=== PATIENT | female | born 1965 | race Caucasian/White ===

== ENCOUNTER 2020-10-17 16:28 | Emergency (ER) | payer BC ==
--- NOTE | 2020-10-17 17:36 | EDM.PDOC ---
ED HPI GENERAL MEDICAL PROBLEM - General Chief Complaint: Respiratory Problem Stated Complaint: COVID +/CHEST PAIN Time Seen by Provider: 10/17/20 17:25 Source of Information: Reports: Patient History Limitations: Reports: No Limitations - History of Present Illness INITIAL COMMENTS - FREE TEXT/NARRATIVE: 55-year-old female presents to the ED with diffuse central chest discomfort that she has had for the last 2 days. Patient started to feel unwell last week Friday, September the . She had a COVID-19 screen on the which proved to be negative. 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 Over the weekend she developed a severe headache of sinus congestion generalized myalgia with fever and chills. Subsequently she has developed a mild nonproductive cough. She still has a bit of appetite and retention of her smell and taste. She has not developed any diarrhea. Generalized weakness and significant fatigue. She found out she was Covid positive today. She presents to the ED primarily due to the central chest discomfort to make sure there is no heart attack or PE. Onset: Gradual Onset Date: 10/13/20 Duration: Day(s):, Getting Worse Location: Reports: Chest, Generalized (Paroxysmal minimally productive cough generalized myalgia), Other ( with headache fever chills decreased appetite) Quality: Reports: Ache Severity: Moderate (Neurolyse myalgia 6 out of 10.) Improves with: Reports: Medication (Headache improves with Tylenol.) Worsens with: Reports: Other (Symptoms are worse with) Context: Reports: Sick Contact. Denies: Activity, Exercise ( movement and walking.), Lifting, Trauma, Other Associated Symptoms: Reports: Chest Pain (Has central chest discomfort), Cough, Diaphoresis ( with radiation across both upper anterior sides of her chest but not into her back.), Fever/Chills, Headaches, Loss of Appetite, Malaise, Nausea/Vomiting, Shortness of Breath, Weakness (Mild nausea no vomiting), Other. 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: Reports: Acetaminophen ( no diarrhea primarily for headache and body ache.) Middle Chest Pain Score (Numeric/FACES): 4 - Related Data Allergies Allergy/AdvReac Type Severity Reaction Status Date / Time hydrocodone Allergy Itching Verified 12/22/20 17:15 Home Meds: Home Meds Cyclobenzaprine HCl 10 mg PO BEDTIME 03/18/16 [History] LORazepam 1 mg PO DAILY PRN 03/18/16 [History] Spironolactone [Aldactone] 100 mg PO DAILY 03/18/16 [History] Albuterol Sulfate [Albuterol Sulfate Hfa] 8.5 gm IH Q3H PRN #1 hfa.aer.ad 10/17/20 [Rx] Famotidine 40 mg PO DAILY 10/17/20 [History] Metoprolol Succinate 25 mg PO DAILY 10/17/20 [History] Pravastatin [Pravachol] 40 mg PO DAILY 10/17/20 [History] buPROPion HCL [Wellbutrin Xl] 300 mg PO DAILY 10/17/20 [History] dexAMETHasone [Dexamethasone] 4 mg PO ASDIRECTED #15 tablet 10/17/20 [Rx] Past Medical History Gastrointestinal History: Reports: GERD - Past Surgical History Musculoskeletal Surgical History: Reports: Shoulder Surgery Social & Family History - Living Situation & Occupation Living situation: Reports: 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 Denies: Wheezing, Pleuritic Chest Pain Cardiovascular: Reports: Chest Pain, Dyspnea on Exertion, Lightheadedness. Denies: Blood Pressure Problem, Claudication (Chest discomfort which she describes as a pressure.), Edema, Orthopnea, Palpitations Endocrine: Reports: Fatigue GI/Abdominal: Reports: Decreased Appetite, Nausea, Other (History of severe GERD. No worse recently). Denies: Diarrhea, Vomiting (Mild nausea) : Reports: No Symptoms Musculoskeletal: Reports: Muscle Pain (Generalized myalgia particularly large muscles a neck) Skin: Reports: No Symptoms ( low back and thighs.) Neurological: Reports: Dizziness, Weakness. Denies: Trouble Speaking, Difficulty Walking Psychiatric: Reports: Depression Hematologic/Lymphatic: Reports: No Symptoms Immunologic: Reports: No Symptoms ED EXAM, GENERAL - Physical Exam Exam: See Below Exam Limited By: No Limitations General Appearance: Alert, WD/WN, No Apparent Distress, Other (Does feel mildly warm to palpation. Temperature is registered at 36.9. Heart rate is 110 at the bedside. Sinus on the monitor. Respiratory is 22 to 24/min with O2 sats of 96 to 97% room air BP is 149/93.) Eye Exam: Bilateral Eye: Normal Inspection, PERRL (No scleral icterus or blepharal pallor.) Ears: Normal TMs Throat/Mouth: Other Head: Atraumatic, Normocephalic (Tongue is mildly dry and coated. Oropharynx is otherwise normal) Neck: Normal Inspection, Supple, Non-Tender, Full Range of Motion. No: Lymphadenopathy (L), Lymphadenopathy (R) Respiratory/Chest: Respiratory Distress (Mild tachypnea.), Rales, Rhonchi (Scattered rales scattered rhonchi through both posterior lower lung omer). No: Lungs Clear, Normal Breath Sounds, Decreased Breath Sounds Cardiovascular: Normal Peripheral Pulses, Regular Rate, Rhythm, No Edema, No Gallop, No Murmur, No Rub, Tachycardia Peripheral Pulses: 3+: Carotid (L), Carotid (R), Posterior Tibial (L), Posterior Tibial (R), Dorsalis Pedis (L), Dorsalis Pedis (R) GI/Abdominal: Normal Bowel Sounds, Soft, Non-Tender, No Organomegaly, No Mass, Pelvis Stable, Other (Scars from laparoscopic cholecystectomy and laparoscopic assisted vaginal hysterectomy) Back Exam: Normal Inspection, Full Range of Motion. No: CVA Tenderness (L), CVA Tenderness (R) Extremities: Normal Inspection, Normal Range of Motion, Non-Tender, No Pedal Edema Neurological: Alert, Oriented, CN II-XII Intact, Normal Cognition Psychiatric: Anxious Skin Exam: Warm, Dry, Intact, Normal Color, No Rash #1 Interpretation EKG Date: 10/17/20 Time: 18:17 Rhythm: Other Rate (Beats/Min): 122 [place]: LAD-Left [place] Deviation (Left axis deviation of -41 degrees) P-Wave: Enlarged (Syndrome mild left atrial hypertrophy) QRS: Other (RSR prime wave V1 and V2 consider normal variant. Poor R wave progression with delayed transition. Decreased voltage throughout the precordial leads.) ST-T: Normal EKG Interpretation Comments: Abnormal ECG Course - Vital Signs Last Recorded V/S: Last Vital Signs Temp 36.9 C 10/17/20 17:17 Pulse 110 H 10/17/20 17:17 Resp 20 10/17/20 17:17 BP 149/93 H 10/17/20 17:17 Pulse Ox 97 10/17/20 17:17 - Orders/Labs/Meds Orders: Active Orders 24 hr Category Date Time Status EKG Documentation Completion [RC] STAT Care 10/17/20 17:44 Active Vital Signs [RC] Q15M Care 10/17/20 18:49 Active Vital Signs [RC] Q15M Care 10/17/20 19:16 Active Chest 1V Frontal [CR] Stat Exams 10/17/20 17:44 Taken URINALYSIS W/MICROSCOPIC [UA W/MICROSCOPIC] [URIN] Stat Lab 10/17/20 17:44 Ordered Acetaminophen [TylenoL] Med 10/17/20 17:41 Active 650 mg PO Q4H PRN Dextrose 5%-0.9% NaCl [Dextrose 5%-Normal Saline] 1,000 Med 10/17/20 17:45 Active ml IV ASDIRECTED EPINEPHrine [EPINEPHrine 1:10,000] Med 10/17/20 18:48 Active 0.3 mg IM ONETIME PRN EPINEPHrine [EPINEPHrine 1:10,000] Med 10/17/20 19:16 Active 0.3 mg IM ONETIME PRN Famotidine [Pepcid] Med 10/17/20 18:48 Active 20 mg IVPUSH ONETIME PRN Famotidine [Pepcid] Med 10/17/20 19:16 Active 20 mg IVPUSH ONETIME PRN Sodium Chloride 0.9% [Saline Flush] Med 10/17/20 19:00 Active 30 ml FLUSH ASDIRECTED Sodium Chloride 0.9% [Saline Flush] Med 10/17/20 19:30 Active 30 ml FLUSH ASDIRECTED diphenhydrAMINE [Benadryl] Med 10/17/20 18:48 Active 50 mg IVPUSH ONETIME PRN methylPREDNISolone Sod Succ [Solu-MEDROL] Med 10/17/20 18:48 Active 125 mg IVPUSH ONETIME PRN methylPREDNISolone Sod Succ [Solu-MEDROL] Med 10/17/20 19:16 Active 125 mg IVPUSH ONETIME PRN Medication Orders Acetaminophen (Tylenol) 650 mg PO Q4H PRN PRN Reason: Pain Last Admin: 10/17/20 18:31 Dose: 650 mg Documented by: JESÚS Diphenhydramine HCl (Benadryl) 50 mg IVPUSH ONETIME PRN PRN Reason: hypersensitivity reaction Epinephrine HCl (Epinephrine 1:10,000) 0.3 mg IM ONETIME PRN PRN Reason: hypersensitivity reaction Epinephrine HCl (Epinephrine 1:10,000) 0.3 mg IM ONETIME PRN PRN Reason: hypersensitivity reaction Famotidine (Pepcid) 20 mg IVPUSH ONETIME PRN PRN Reason: hypersensitivity reaction Famotidine (Pepcid) 20 mg IVPUSH ONETIME PRN PRN Reason: hypersensitivity reaction Dextrose/Sodium Chloride (Dextrose 5%-Normal Saline) 1,000 mls @ 150 mls/hr IV ASDIRECTED [facility] Last Admin: 10/17/20 18:30 Dose: 150 mls/hr Documented by: JESÚS Methylprednisolone Sodium Succinate (Solu-Medrol) 125 mg IVPUSH ONETIME PRN PRN Reason: hypersensitivity reaction Methylprednisolone Sodium Succinate (Solu-Medrol) 125 mg IVPUSH ONETIME PRN PRN Reason: hypersensitivity reaction Sodium Chloride (Saline Flush) 30 ml FLUSH ASDIRECTED [facility] Sodium Chloride (Saline Flush) 30 ml FLUSH ASDIRECTED [facility] Labs: Laboratory Tests 10/17/20 10/17/20 10/17/20 Range/Units 18:15 18:15 18:15 WBC 4.88 (3.98-10.04) K/mm3 RBC 4.80 (3.98-5.22) M/mm3 Hgb 14.5 (11.2-15.7) gm/dl Hct 45.2 H (34.1-44.9) % MCV 94.2 (79.4-94.8) fl MCH 30.2 (25.6-32.2) pg MCHC 32.1 L (32.2-35.5) g/dl RDW Std Deviation 41.1 (36.4-46.3) fL Plt Count 216 D (182-369) K/mm3 MPV 9.6 (9.4-12.3) fl Neut % (Auto) 58.6 (34.0-71.1) % Lymph % (Auto) 28.7 (19.3-51.7) % [place] % (Auto) 11.7 (4.7-12.5) % Eos % (Auto) 0.6 L (0.7-5.8) Baso % (Auto) 0.2 (0.1-1.2) % Neut # (Auto) 2.86 (1.56-6.13) K/mm3 Lymph # (Auto) 1.40 (1.18-3.74) K/mm3 [place] # (Auto) 0.57 H (0.24-0.36) K/mm3 Eos # (Auto) 0.03 L (0.04-0.36) K/mm3 Baso # (Auto) 0.01 (0.01-0.08) K/mm3 PT 10.4 (9.7-12.0) SECONDS INR 0.97 APTT 28.8 (21.7-31.4) SECONDS D-Dimer, Quantitative 0.37 (0.19-0.50) mg/L Sodium 136 (136-145) mEq/L Potassium 4.0 (3.5-5.1) mEq/L Chloride 100 (98-107) mEq/L Carbon Dioxide 27 (21-32) mEq/L Anion Gap 13.0 (5-15) BUN 10 (7-18) mg/dL Creatinine 0.7 (0.55-1.02) mg/dL Est Cr Clr Drug Dosing TNP Estimated GFR (MDRD) > 60 (>60) mL/min BUN/Creatinine Ratio 14.3 (14-18) Glucose 100 (74-106) mg/dL Calcium 9.3 (8.5-10.1) mg/dL Magnesium 1.9 (1.8-2.4) mg/dl Ferritin (8-252) ng/ml Total Bilirubin 0.1 L (0.2-1.0) mg/dL AST 20 (15-37) U/L ALT 31 (14-59) U/L Alkaline Phosphatase 86 (46-116) U/L Lactate Dehydrogenase 262 H (81-234) U/L CK-MB (CK-2) < 0.5 (0-3.6) ng/ml Troponin I < 0.017 (0.00-0.056) ng/mL C-Reactive Protein 1.4 H* (<1.0) mg/dL NT-Pro-B Natriuret Pep (0-125) pg/mL Total Protein 7.8 (6.4-8.2) g/dl Albumin 3.9 (3.4-5.0) g/dl Globulin 3.9 gm/dL Albumin/Globulin Ratio 1.0 (1-2) 10/17/20 10/17/20 Range/Units 18:15 18:15 WBC (3.98-10.04) K/mm3 RBC (3.98-5.22) M/mm3 Hgb (11.2-15.7) gm/dl Hct (34.1-44.9) % MCV (79.4-94.8) fl MCH (25.6-32.2) pg MCHC (32.2-35.5) g/dl RDW Std Deviation (36.4-46.3) fL Plt Count (182-369) K/mm3 MPV (9.4-12.3) fl Neut % (Auto) (34.0-71.1) % Lymph % (Auto) (19.3-51.7) % [place] % (Auto) (4.7-12.5) % Eos % (Auto) (0.7-5.8) Baso % (Auto) (0.1-1.2) % Neut # (Auto) (1.56-6.13) K/mm3 Lymph # (Auto) (1.18-3.74) K/mm3 [place] # (Auto) (0.24-0.36) K/mm3 Eos # (Auto) (0.04-0.36) K/mm3 Baso # (Auto) (0.01-0.08) K/mm3 PT (9.7-12.0) SECONDS INR APTT (21.7-31.4) SECONDS D-Dimer, Quantitative (0.19-0.50) mg/L Sodium (136-145) mEq/L Potassium (3.5-5.1) mEq/L Chloride (98-107) mEq/L Carbon Dioxide (21-32) mEq/L Anion Gap (5-15) BUN (7-18) mg/dL Creatinine (0.55-1.02) mg/dL Est Cr Clr Drug Dosing Estimated GFR (MDRD) (>60) mL/min BUN/Creatinine Ratio (14-18) Glucose (74-106) mg/dL Calcium (8.5-10.1) mg/dL Magnesium (1.8-2.4) mg/dl Ferritin 661 H (8-252) ng/ml Total Bilirubin (0.2-1.0) mg/dL AST (15-37) U/L ALT (14-59) U/L Alkaline Phosphatase (46-116) U/L Lactate Dehydrogenase (81-234) U/L CK-MB (CK-2) (0-3.6) ng/ml Troponin I (0.00-0.056) ng/mL C-Reactive Protein (<1.0) mg/dL NT-Pro-B Natriuret Pep 30 (0-125) pg/mL Total Protein (6.4-8.2) g/dl Albumin (3.4-5.0) g/dl Globulin gm/dL Albumin/Globulin Ratio (1-2) Meds: Medications Generic Name Dose Route Start Last Admin Trade Name Freq PRN Reason Stop Dose Admin Acetaminophen 650 mg 10/17/20 17:41 10/17/20 18:31 Tylenol PO 650 mg Q4H PRN Administration Pain Diphenhydramine HCl 50 mg 10/17/20 18:48 Benadryl IVPUSH ONETIME PRN hypersensitivity reaction Epinephrine HCl 0.3 mg 10/17/20 18:48 Epinephrine 1:10,000 IM ONETIME PRN hypersensitivity reaction Epinephrine HCl 0.3 mg 10/17/20 19:16 Epinephrine 1:10,000 IM ONETIME PRN hypersensitivity reaction Famotidine 20 mg 10/17/20 18:48 Pepcid IVPUSH ONETIME PRN hypersensitivity reaction Famotidine 20 mg 10/17/20 19:16 Pepcid IVPUSH ONETIME PRN hypersensitivity reaction Dextrose/Sodium Chloride 1,000 mls @ 150 mls/hr 10/17/20 17:45 10/17/20 18:30 Dextrose 5%-Normal Saline IV 150 mls/hr ASDIRECTED AJAY Administration Methylprednisolone Sodium Succinate 125 mg 10/17/20 18:48 Solu-Medrol IVPUSH ONETIME PRN hypersensitivity reaction Methylprednisolone Sodium Succinate 125 mg 10/17/20 19:16 Solu-Medrol IVPUSH ONETIME PRN hypersensitivity reaction Sodium Chloride 30 ml 10/17/20 19:00 Saline Flush FLUSH ASDIRECTED AJAY Sodium Chloride 30 ml 10/17/20 19:30 Saline Flush FLUSH ASDIRECTED AJAY Discontinued Medications Generic Name Dose Route Start Last Admin Trade Name Mariia PRN Reason Stop Dose Admin Dexamethasone 6 mg 10/17/20 17:42 10/17/20 18:26 Decadron IVPUSH 10/17/20 17:43 6 mg ONETIME ONE Administration Non-Formulary Medication 1,200 250 mls @ 250 mls/hr 10/17/20 18:49 mg/ Non-Formulary Medication IV 10/17/20 19:48 1,200 mg/ Sodium Chloride ONETIME ONE Bamlanivimab Confirm 10/17/20 19:12 Administered 10/17/20 19:13 Dose 20 mls @ as directed .ROUTE .STK-MED ONE Bamlanivimab 700 mg/ Sodium 270 mls @ 270 mls/hr 10/17/20 19:16 Chloride IV 10/17/20 19:17 ONETIME ONE Protocol - Radiology Interpretation Free Text/Narrative:: 55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 She has been symptomatic since last October 13. She is therefore on day 5 of illness. Sats are maintained at 96 to 97% on room air. Her chief complaint is central chest discomfort or pressure. She will therefore have a COVID-19 work-up to include troponin and D- dimer etc. She is a candidate for [employer] and information fact sheet was given to her. She will be given dexamethasone 6 mg IV while in the ED today. Also Tylenol 650 mg p.o. for fever and headache relief at this time. IV will be D5 normal saline at 150 mils per hour. - Re-Assessments/Exams Free Text/Narrative Re-Assessment/Exam: 10/17/20 18:30: Chest x-ray reveals a slight infiltrate right lower lobe of lung field. Cardiac silhouette is normal there is no pleural effusion no pneumothorax.White blood cell count is 4.88 with 58.6% neutrophils is the auto differential. Hemoglobin 14.5 with hematocrit of 45.2. Platelet counts 216,000. PT is 10.4 with an INR of 0.97. PTT is 28.8 D-dimer is normal at 0.37. Patient has read the fact sheet for Bamlaniviumab and is willing to accept the risks of experimental drug therapy. We will therefore proceed with Bamlanivimab monoclonal antibody infusion. I have spoke with Catherine Garcia to provide information about Bamlanivimab treatment for herself Catherine bridges. I offered them the patient and the caregiver VIRGINIE Savageiumab fax sheet to read and review. I stated the drug has been approved by an emergency use authorization process and has not been fully vetted by the the FDA reviewed or approved. The patient meets the EUA requirements. I discussed there are other potential treatment options that are currently not FDA approved to treat COVID- 19 as well. Offered the opportunity to ask questions and all questions were answered. Catherine bridges voiced understanding and agreed to proceed with treatment for herself Catherine Garcia. Patient will receive the above drug bamlanivimab as it is after hours and pharmacy is not here to mix up Regeneron. 10/17/20 19:26 Sodium is 136 with a potassium of 4.0. Chloride 100 with a bicarb of 27. Anion gap is 13.0. BUN is 10 with a creatinine of 0.7 and a GFR greater than 60. Glucose is 100. Calcium is 9.3 magnesium is 1.9 serum ferritin is elevated at 661. Total bilirubin is 0.1 and the remainder the liver function is normal. LDH is mildly elevated at 262. CK-MB fraction is less than 0.5 and troponin I is less than 0.017. C-reactive protein is 1.4. BNP is 30 total protein 7.8 with an albumin fraction of 3.9 10/17/20 19:39 continues to have central chest discomfort of unclear etiology. It may be due to central bronchospasm. I will discharge her home on albuterol neb treatments through metered-dose inhaler 2 puffs every 3 hours as needed. She will be placed on dexamethasone 4 mg twice daily for 5 days ideally with breakfast and supper and then once in the morning for another 5 days in the hopes of further reducing inflammation in her chest. Departure - Departure Time of Disposition: 21:00 Disposition: Home, Self-Care 01 Condition: Fair Clinical Impression: COVID-19 determined by clinical diagnostic criteria, Chest pain in adult, Non- cardiac chest pain - Discharge Information *PRESCRIPTION DRUG MONITORING PROGRAM REVIEWED*: Not Applicable *COPY OF PRESCRIPTION DRUG MONITORING REPORT IN PATIENT KINZA: Not Applicable Prescriptions: Albuterol Sulfate [Albuterol Sulfate Hfa] 8.5 gm IH Q3H PRN #1 hfa.aer.ad PRN Reason: Dyspnea/wheezing dexAMETHasone [Dexamethasone] 4 mg PO ASDIRECTED #15 tablet Referrals: PCP,None [Primary Care Provider] - Forms: ED Department Discharge Additional Instructions: Evaluation in the emergency room today in regards to recent diagnosis of COVID- 19 illness with symptoms starting about 5 days ago October 13. Central chest discomfort brought you to the ED and it appears to be due to the inflammation in the bronchi. There is no evidence of heart related illness and no sign of blood clots in the lungs either. Chest x-ray did not show any significant pneumonia either. You were therefore given treatment with monoclonal antibody Bamlanivimab--which is an experimental medication providing immediate antibodies against the COVID-19 virus in the hopes of shortening the length of your illness and improving her symptoms rather quickly. Also initial dose of dexamethasone 6 mg was given intravenously in the ED. At home you may use albuterol metered- dose inhaler 2 puffs every 3-4 hours as needed to help relieve central chest discomfort as I believe it is likely due to upper bronchospasm due to the viral infection. You will also need to continue dexamethasone 4 mg in the morning and with supper for 5 days and then once in the morning only for another 5 days to reduce inflammation. Suggest purchasing a pulse oximeter to one of the local pharmacies or at [email or web address] to monitor your blood oxygen levels at home. If they remain above 94 you are in good standing. If they persist at 90 or lower it would be time to come to the hospital Sepsis Event Note (ED) - Evaluation Sepsis Screening Result: No Definite Risk - Focused Exam Vital Signs: Vital Signs Temp Pulse Resp BP Pulse Ox 10/17/20 17:17 36.9 C 110 H 20 149/93 H 97 - My Orders Last 24 Hours: My Active Orders 10/17/20 17:41 Acetaminophen [TylenoL] 650 mg PO Q4H PRN 10/17/20 17:44 EKG Documentation Completion [RC] STAT Chest 1V Frontal [CR] Stat URINALYSIS W/MICROSCOPIC [UA W/MICROSCOPIC] [URIN] Stat 10/17/20 17:45 Dextrose 5%-0.9% NaCl [Dextrose 5%-Normal Saline] 1,000 ml IV ASDIRECTED 10/17/20 18:48 EPINEPHrine [EPINEPHrine 1:10,000] 0.3 mg IM ONETIME PRN Famotidine [Pepcid] 20 mg IVPUSH ONETIME PRN diphenhydrAMINE [Benadryl] 50 mg IVPUSH ONETIME PRN methylPREDNISolone Sod Succ [Solu-MEDROL] 125 mg IVPUSH ONETIME PRN 10/17/20 18:49 Vital Signs [RC] Q15M 10/17/20 19:00 Sodium Chloride 0.9% [Saline Flush] 30 ml FLUSH ASDIRECTED 10/17/20 19:16 Vital Signs [RC] Q15M EPINEPHrine [EPINEPHrine 1:10,000] 0.3 mg IM ONETIME PRN Famotidine [Pepcid] 20 mg IVPUSH ONETIME PRN methylPREDNISolone Sod Succ [Solu-MEDROL] 125 mg IVPUSH ONETIME PRN 10/17/20 19:30 Sodium Chloride 0.9% [Saline Flush] 30 ml FLUSH ASDIRECTED - Assessment/Plan Last 24 Hours: My Active Orders 10/17/20 17:41 Acetaminophen [TylenoL] 650 mg PO Q4H PRN 10/17/20 17:44 EKG Documentation Completion [RC] STAT Chest 1V Frontal [CR] Stat URINALYSIS W/MICROSCOPIC [UA W/MICROSCOPIC] [URIN] Stat 10/17/20 17:45 Dextrose 5%-0.9% NaCl [Dextrose 5%-Normal Saline] 1,000 ml IV ASDIRECTED 10/17/20 18:48 EPINEPHrine [EPINEPHrine 1:10,000] 0.3 mg IM ONETIME PRN Famotidine [Pepcid] 20 mg IVPUSH ONETIME PRN diphenhydrAMINE [Benadryl] 50 mg IVPUSH ONETIME PRN methylPREDNISolone Sod Succ [Solu-MEDROL] 125 mg IVPUSH ONETIME PRN 10/17/20 18:49 Vital Signs [RC] Q15M 10/17/20 19:00 Sodium Chloride 0.9% [Saline Flush] 30 ml FLUSH ASDIRECTED 10/17/20 19:16 Vital Signs [RC] Q15M EPINEPHrine [EPINEPHrine 1:10,000] 0.3 mg IM ONETIME PRN Famotidine [Pepcid] 20 mg IVPUSH ONETIME PRN methylPREDNISolone Sod Succ [Solu-MEDROL] 125 mg IVPUSH ONETIME PRN 10/17/20 19:30 Sodium Chloride 0.9% [Saline Flush] 30 ml FLUSH ASDIRECTED
[2020-10-17] MEDS ORDERED: Acetaminophen 325 MG Tab PO PRN (17:41)
[2020-10-17] MEDS ORDERED: Dexamethasone 10 MG/ML SDV IVPUSH ONE (17:42)
[2020-10-17] MEDS ORDERED: Dextrose 5%-0.9% NaCl 1,000 ML IV SCH (17:45)
[2020-10-17] MEDS ORDERED: Famotidine 20 MG/2 ML SDV IVPUSH PRN ×2 (18:48→19:16)
[2020-10-17] MEDS ORDERED: methylPREDNISolone Sodium Succinate 125 MG/2 ML SDV IVPUSH PRN ×2 (18:48→19:16)
[2020-10-17] MEDS ORDERED: EPINEPHrine 1:10,000 1 MG/10 ML Syringe IM PRN ×2 (18:48→19:16)
[2020-10-17] MEDS ORDERED: diphenhydrAMINE 50 MG/ML SDV IVPUSH PRN (18:48)
[2020-10-17] MEDS ORDERED: Casirivimab 1,200 MG, Imdevimab 1,200 MG in Sodium Chloride 0.9% 230 ML IV ONE (18:49)
[2020-10-17] MEDS ORDERED: Sodium Chloride 0.9% 10 ML Syringe FLUSH SCH ×2 (19:00→19:30)
[2020-10-17 20:31] VITALS: PULSE 113
[2020-10-17 20:49] VITALS: BP 115/75
--- NOTE | 2020-10-18 08:41 | CR ---
Chest: Portable view of the chest was obtained. Comparison: No prior chest x-ray is available, previous CT angiogram of the chest was obtained on 11/21/14. Findings: Heart size and mediastinum are within normal limits. Lungs are clear with no acute parenchymal change. Prior right shoulder surgery is present. Prior cholecystectomy appears to be present. Impression: 1. Findings as noted above. 2. Nothing acute is seen. Diagnostic code #2
== END 2020-10-17 22:00 | disposition home or self-care (01) ==
LOC: JD.ED 16:28
DX: R07.89 Other chest pain (principal)
CPT/HCPCS: 36415; 71045; 80053; 81001; 82553; 82728; 83615; 83735; 83880; 84484; 85025; 85379; 85610; 85730; 86140; 93005; 96374; 99285; A9270; J1100; J7042; J7050; M0239; 93010; 99284

== ENCOUNTER 2020-11-04 04:37 | Emergency (ER) | payer BC ==
[2020-11-04 04:53] VITALS: BP 126/88; PULSE 80
--- NOTE | 2020-11-04 05:06 | EDM.PDOC ---
ED HPI GENERAL MEDICAL PROBLEM - General Chief Complaint: Respiratory Problem Stated Complaint: SOB Time Seen by Provider: 11/04/20 04:41 Source of Information: Reports: Patient History Limitations: Reports: No Limitations - History of Present Illness INITIAL COMMENTS - FREE TEXT/NARRATIVE: Is a 55-year-old female. She had onset of Covid symptoms back October 13 and she has been tested is positive around the . It is been over 20 days now since she had her active infection and she went back to see her doctor on the because of shortness of breath and pleuritic type chest pain. Her physician on the did a D-dimer that was normal troponin that was normal C- reactive protein was normal a CBC showed a white count of 13.95 and the x-ray suggested possibly a left lower lobe base periphery infiltrate that was very slight. She was placed on prednisone 20 mg a day given a inhaler and placed on a Z-Santi. She comes tonight because she feels more short of breath. She says at home her pulse ox when sitting dropped down to the 1 but here in the ER when she arrived her pulse ox was 100% on room air and her respiratory rate was 28. She complains of feeling shortness of breath but she does not appear to be in acute distress or extremis. She appears to be more anxious. She is scheduled on Friday to have echocardiogram and apparently a CT angiogram despite having a negative D-dimer. Right Chest Pain Score (Numeric/FACES): 7 - Related Data Allergies Allergy/AdvReac Type Severity Reaction Status Date / Time hydrocodone Allergy Itching Verified 11/04/20 04:53 Home Meds: Home Meds Cyclobenzaprine HCl 10 mg PO BEDTIME 03/18/16 [History] LORazepam 1 mg PO DAILY PRN 03/18/16 [History] Spironolactone [Aldactone] 100 mg PO DAILY 03/18/16 [History] Albuterol Sulfate [Albuterol Sulfate Hfa] 8.5 gm IH Q3H PRN #1 hfa.[id number].[id number] 10/17/20 [Rx] Famotidine 40 mg PO DAILY 10/17/20 [History] Metoprolol Succinate 25 mg PO DAILY 10/17/20 [History] Pravastatin [Pravachol] 40 mg PO DAILY 10/17/20 [History] buPROPion HCL [Wellbutrin Xl] 300 mg PO DAILY 10/17/20 [History] dexAMETHasone [Dexamethasone] 4 mg PO ASDIRECTED #15 tablet 10/17/20 [Rx] Past Medical History HEENT History: Reports: Impaired Vision Cardiovascular History: Reports: High Cholesterol, Other (See Below) Other Cardiovascular History: takes a medication to help her heart muscle relax Gastrointestinal History: Reports: GERD Psychiatric History: Reports: Depression - Infectious Disease History Infectious Disease History: Reports: Novel Coronavirus - Past Surgical History HEENT Surgical History: Reports: Oral Surgery GI Surgical History: Reports: Cholecystectomy Female Surgical History: Reports: Hysterectomy Musculoskeletal Surgical History: Reports: Shoulder Surgery Social & Family History - Tobacco Use Tobacco Use Status *Q: Never Tobacco User - Caffeine Use Caffeine Use: Reports: None - Living Situation & Occupation Living situation: Reports: 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 Denies: Chills HEENT: Denies: Rhinitis, Throat Pain, Throat Swelling Respiratory: Reports: Shortness of Breath. Denies: Wheezing, Cough Cardiovascular: Reports: Chest Pain Endocrine: Reports: No Symptoms GI/Abdominal: Denies: Abdominal Pain, Nausea, Vomiting Musculoskeletal: Reports: No Symptoms Skin: Reports: No Symptoms Neurological: Reports: No Symptoms Psychiatric: Reports: Anxiety Hematologic/Lymphatic: Reports: No Symptoms ED EXAM, GENERAL - Physical Exam Exam: See Below Exam Limited By: No Limitations General Appearance: Alert, WD/WN, Anxious Eye Exam: Bilateral Eye: Normal Inspection Ears: Normal External Exam, Normal Canal, Normal TMs Nose: Normal Inspection Throat/Mouth: Normal Inspection, Normal Lips, Normal Oropharynx, Normal Voice, No Airway Compromise, Other (Mucous membranes are slightly dry) Head: Normocephalic Neck: Supple Respiratory/Chest: No Respiratory Distress, Lungs Clear, Other (Slightly more prominent breath sounds on the left base than the right base but no rales wheezes or rhonchi. She does have increased respiratory rate.). No: Crackles, Rales, Rhonchi, Wheezing Cardiovascular: Regular Rate, Rhythm, No Murmur GI/Abdominal: Soft, Non-Tender Back Exam: Full Range of Motion Extremities: Normal Inspection, Normal Range of Motion Neurological: Alert, Oriented, Normal Cognition Psychiatric: Anxious Skin Exam: Warm, Dry #1 Interpretation EKG Date: 11/04/20 Time: 04:50 EKG Interpretation Comments: Normal sinus rhythm rate of 81, there is no acute ST or T wave changes, there is no acute ischemia noted. Course - Vital Signs Last Recorded V/S: Last Vital Signs Temp 97.8 F 11/04/20 04:50 Pulse 80 11/04/20 04:50 Resp 28 H 11/04/20 04:50 BP 126/88 11/04/20 04:50 Pulse Ox 100 11/04/20 04:50 - Orders/Labs/Meds Orders: Active Orders 24 hr Category Date Time Status EKG Documentation Completion [RC] ASDIRECTED Care 11/04/20 04:45 Active Chest 2V [CR] Stat Exams 11/04/20 05:05 Taken CBC WITH AUTO DIFF [HEME] Stat Lab 11/04/20 05:00 Results methylPREDNISolone Sod Succ [Solu-MEDROL] Med 11/04/20 06:06 Once 125 mg IVPUSH ONETIME ONE Labs: Laboratory Tests 11/04/20 11/04/20 11/04/20 Range/Units 05:00 05:00 05:00 WBC 11.99 H (3.98-10.04) K/mm3 RBC 4.40 (3.98-5.22) M/mm3 Hgb 13.4 (11.2-15.7) gm/dl Hct 41.8 (34.1-44.9) % MCV 95.0 H (79.4-94.8) fl MCH 30.5 (25.6-32.2) pg MCHC 32.1 L (32.2-35.5) g/dl RDW Std Deviation 43.6 (36.4-46.3) fL Plt Count 313 (182-369) K/mm3 MPV 9.4 (9.4-12.3) fl Neut % (Auto) 61.5 (34.0-71.1) % Lymph % (Auto) 29.3 (19.3-51.7) % Todd % (Auto) 7.8 (4.7-12.5) % Eos % (Auto) 0.6 L (0.7-5.8) Baso % (Auto) 0.1 (0.1-1.2) % Neut # (Auto) 7.38 H (1.56-6.13) K/mm3 Lymph # (Auto) 3.51 (1.18-3.74) K/mm3 Todd # (Auto) 0.94 H (0.24-0.36) K/mm3 Eos # (Auto) 0.07 (0.04-0.36) K/mm3 Baso # (Auto) 0.01 (0.01-0.08) K/mm3 D-Dimer, Quantitative 0.37 (0.19-0.50) mg/L Puncture Site ABG pH (7.35-7.45) ABG pCO2 (35.0-45.0) mmHg ABG pO2 (80.0-100.0) mmHg ABG HCO3 (22.0-26.0) meq/L ABG O2 Saturation (96.0-97.0) % ABG Base Excess (-2-2.0) Chris Test A-a Gradient mmHg O2 Delivery Device FiO2 (21.00-100.00) % Sodium 142 (136-145) mEq/L Potassium 3.9 (3.5-5.1) mEq/L Chloride 105 (98-107) mEq/L Carbon Dioxide 21 (21-32) mEq/L Anion Gap 19.9 H (5-15) BUN 22 H (7-18) mg/dL Creatinine 0.8 (0.55-1.02) mg/dL Est Cr Clr Drug Dosing TNP Estimated GFR (MDRD) > 60 (>60) mL/min BUN/Creatinine Ratio 27.5 H (14-18) Glucose 90 (74-106) mg/dL Calcium 9.5 (8.5-10.1) mg/dL Total Bilirubin 0.2 (0.2-1.0) mg/dL AST 9 L (15-37) U/L ALT 24 (14-59) U/L Alkaline Phosphatase 65 (46-116) U/L Troponin I < 0.017 (0.00-0.056) ng/mL C-Reactive Protein <0.2 (<1.0) mg/dL Total Protein 6.5 (6.4-8.2) g/dl Albumin 3.4 (3.4-5.0) g/dl Globulin 3.1 gm/dL Albumin/Globulin Ratio 1.1 (1-2) 11/04/20 Range/Units 05:10 WBC (3.98-10.04) K/mm3 RBC (3.98-5.22) M/mm3 Hgb (11.2-15.7) gm/dl Hct (34.1-44.9) % MCV (79.4-94.8) fl MCH (25.6-32.2) pg MCHC (32.2-35.5) g/dl RDW Std Deviation (36.4-46.3) fL Plt Count (182-369) K/mm3 MPV (9.4-12.3) fl Neut % (Auto) (34.0-71.1) % Lymph % (Auto) (19.3-51.7) % Todd % (Auto) (4.7-12.5) % Eos % (Auto) (0.7-5.8) Baso % (Auto) (0.1-1.2) % Neut # (Auto) (1.56-6.13) K/mm3 Lymph # (Auto) (1.18-3.74) K/mm3 Todd # (Auto) (0.24-0.36) K/mm3 Eos # (Auto) (0.04-0.36) K/mm3 Baso # (Auto) (0.01-0.08) K/mm3 D-Dimer, Quantitative (0.19-0.50) mg/L Puncture Site Lt radial ABG pH 7.61 H* (7.35-7.45) ABG pCO2 17.3 L* (35.0-45.0) mmHg ABG pO2 105.0 H (80.0-100.0) mmHg ABG HCO3 17.4 L (22.0-26.0) meq/L ABG O2 Saturation 98.6 H (96.0-97.0) % ABG Base Excess -1.8 (-2-2.0) Chris Test Positive A-a Gradient 23 mmHg O2 Delivery Device Room air FiO2 21.00 (21.00-100.00) % Sodium (136-145) mEq/L Potassium (3.5-5.1) mEq/L Chloride (98-107) mEq/L Carbon Dioxide (21-32) mEq/L Anion Gap (5-15) BUN (7-18) mg/dL Creatinine (0.55-1.02) mg/dL Est Cr Clr Drug Dosing Estimated GFR (MDRD) (>60) mL/min BUN/Creatinine Ratio (14-18) Glucose (74-106) mg/dL Calcium (8.5-10.1) mg/dL Total Bilirubin (0.2-1.0) mg/dL AST (15-37) U/L ALT (14-59) U/L Alkaline Phosphatase (46-116) U/L Troponin I (0.00-0.056) ng/mL C-Reactive Protein (<1.0) mg/dL Total Protein (6.4-8.2) g/dl Albumin (3.4-5.0) g/dl Globulin gm/dL Albumin/Globulin Ratio (1-2) Meds: Medications Discontinued Medications Generic Name Dose Route Start Last Admin Trade Name Freq PRN Reason Stop Dose Admin Lorazepam 0.5 mg 11/04/20 05:07 11/04/20 05:16 Ativan IVPUSH 11/04/20 05:08 0.5 mg ONETIME ONE Administration Lorazepam Confirm 11/04/20 05:13 Ativan Administered 11/04/20 05:14 Dose 2 mg .ROUTE .STK-MED ONE - Radiology Interpretation Free Text/Narrative:: Chest x-ray appears to be slightly better than the one on the sixth as far as the left lower lobe base periphery infiltrate. - Re-Assessments/Exams Free Text/Narrative Re-Assessment/Exam: 11/04/20 06:07 Spoke to the patient about the improvement on the chest x-ray. I spoke to her about the negative D-dimer troponin and C-reactive protein. I indicated that her white count has dropped from 13 down to 11. But she is hyperventilating. She says that she awoke this morning with sharp pain in her chest when she was breathing and she was known to have pleurisy initially and when she was seen on the sixth by her family doctor. That is why she is on the prednisone. I will give her an extra dose of Solu-Medrol while she is here in hopes that we can calm this pleurisy down. I encouraged her to follow-up on Friday with her echocardiogram and her CT scan of her chest. Also suggested she take a lorazepam during the day or at nighttime if she wakes up short of breath. Departure - Departure Time of Disposition: 06:08 Disposition: Home, Self-Care 01 Condition: Fair Clinical Impression: Shortness of breath, Hyperventilation, Pleuritic chest pain, [id number] condition, Pleurisy - Discharge Information *PRESCRIPTION DRUG MONITORING PROGRAM REVIEWED*: Not Applicable *COPY OF PRESCRIPTION DRUG MONITORING REPORT IN PATIENT KINZA: Not Applicable Instructions: Hyperventilation, Pleurisy, [id number] Referrals: Cornelia Young PA-C [Primary Care Provider] - Forms: ED Department Discharge Additional Instructions: Continue with your antibiotics and your steroids, and continue with your inhaler, use your lorazepam during the day if you feel like you are short of breath or at nighttime if you wake up and you feel short of breath to see if it helps, to have a post Covid syndrome of pleurisy which is not very comfortable but if you breathing rapidly it makes it even more uncomfortable and frightening, on Friday be sure to get the echocardiogram and the CT scan that is scheduled for you, follow-up with your doctor later this week for recheck or return to the ER if needed Sepsis Event Note (ED) - Evaluation Sepsis Screening Result: No Definite Risk - Focused Exam Vital Signs: Vital Signs Temp Pulse Resp BP Pulse Ox 11/04/20 04:50 97.8 F 80 28 H 126/88 100 - My Orders Last 24 Hours: My Active Orders 11/04/20 04:45 EKG Documentation Completion [RC] ASDIRECTED 11/04/20 05:00 CBC WITH AUTO DIFF [HEME] Stat 11/04/20 05:05 Chest 2V [CR] Stat 11/04/20 06:06 methylPREDNISolone Sod Succ [Solu-MEDROL] 125 mg IVPUSH ONETIME ONE - Assessment/Plan Last 24 Hours: My Active Orders 11/04/20 04:45 EKG Documentation Completion [RC] ASDIRECTED 11/04/20 05:00 CBC WITH AUTO DIFF [HEME] Stat 11/04/20 05:05 Chest 2V [CR] Stat 11/04/20 06:06 methylPREDNISolone Sod Succ [Solu-MEDROL] 125 mg IVPUSH ONETIME ONE
[2020-11-04] MEDS ORDERED: LORazepam 2 MG/ML SDV IVPUSH ONE (05:07)
[2020-11-04] MEDS ORDERED: LORazepam 2 MG/ML SDV ONE (05:13)
[2020-11-04] MEDS ORDERED: methylPREDNISolone Sodium Succinate 125 MG/2 ML SDV IVPUSH ONE (06:06)
--- NOTE | 2020-11-04 14:26 | CR ---
Chest: 2 views of the chest were obtained. Comparison: Prior chest x-ray of 11/01/20 and 10/17/20. Heart size and mediastinum are within normal limits. Lungs are clear with no acute parenchymal change. Prior right shoulder surgery is noted. Previous cholecystectomy is seen within the upper right abdomen. Impression: 1. Findings as noted above. 2. Nothing acute is definitely appreciated. Diagnostic code #2
== END 2020-11-04 06:25 | disposition home or self-care (01) ==
LOC: JD.ED 04:37
DX: R09.1 Pleurisy (principal); R06.4 Hyperventilation; E78.00 Pure hypercholesterolemia, unspecified; K21.9 Gastro-esophageal reflux disease without esophagitis; Z88.5 Allergy status to narcotic agent; Z79.899 Other long term (current) drug therapy; Z86.16 Personal history of COVID-19
CPT/HCPCS: 36415; 36600; 71046; 80053; 82803; 84484; 85025; 85379; 86140; 93005; 96374; 96375; 99285; J2060; J2930; 93010; 99284

== ENCOUNTER 2021-01-22 17:20 | Emergency (ER) | payer BC ==
[2021-01-22 17:31] VITALS: BP 137/100
[2021-01-22] MEDS ORDERED: Sodium Chloride 0.9% 10 ML Syringe FLUSH PRN (17:59)
--- NOTE | 2021-01-22 18:18 | EDM.PDOC ---
ED HPI GENERAL MEDICAL PROBLEM - General Chief Complaint: Chest Pain Stated Complaint: SOB, CHEST PAIN Time Seen by Provider: 01/22/21 17:24 Source of Information: Reports: Patient History Limitations: Reports: No Limitations - History of Present Illness INITIAL COMMENTS - FREE TEXT/NARRATIVE: 55-year-old female presents the emergency department with complaints of chest pressure and shortness of breath. Of note the patient was diagnosed with Covid 10/17/2020 and has had persistent shortness of breath since that time. She states that she feels like over the course of about the last week she has become more short of breath, has developed chest pressure. She had pulmonary function tests completed as an outpatient at the clinic today and she does not know the exact results however they did tell her that these results were worse than shortly after her recovery from Covid. She has been taking an albuterol inhaler as needed as well as budesonide. She states those also helped for a short bit however they are no longer working for her. She denies any history of recent fever, chills, nausea, vomiting, diarrhea, sore throat or headache. States she does take a blood pressure medication however it is prescribed by her nutrition and dietetics instructor for hair loss. Her only other medical history is for high cholesterol for which she takes medication. She denies pleuritic type of chest pain. She denies any radiation to her shoulder, jaw, or down her arm. She states she is the only member of her family who does not have factor V. Chest Pain Score (Numeric/FACES): 3 - Related Data Allergies Allergy/AdvReac Type Severity Reaction Status Date / Time hydrocodone Allergy Itching Verified 01/22/21 17:31 Home Meds: Home Meds Cyclobenzaprine HCl 10 mg PO BEDTIME PRN 03/18/16 [History] LORazepam 1 mg PO DAILY PRN 03/18/16 [History] Spironolactone [Aldactone] 100 mg PO DAILY 03/18/16 [History] Famotidine 40 mg PO DAILY 10/17/20 [History] Metoprolol Succinate 25 mg PO DAILY 10/17/20 [History] Pravastatin [Pravachol] 40 mg PO DAILY 10/17/20 [History] buPROPion HCL [Wellbutrin Xl] 300 mg PO DAILY 10/17/20 [History] Budesonide [Pulmicort] 1 dose INH BID 01/22/21 [History] Escitalopram [Lexapro] 5 mg PO DAILY 01/22/21 [History] Fluticasone/Vilanterol [Breo Ellipta 100-25 MCG Inhalation Kit] 1 puff PO DAILY 01/22/21 [History] Ipratropium/Albuterol Sulfate [Iprat-Albut 0.5-3(2.5) mg/3 ml] 1 dose NEB QID 01/22/21 [History] Montelukast [Singulair] 10 mg PO DAILY 01/22/21 [History] Past Medical History HEENT History: Reports: Impaired Vision Cardiovascular History: Reports: High Cholesterol, Other (See Below) Other Cardiovascular History: takes a medication to help her heart muscle relax Gastrointestinal History: Reports: GERD Psychiatric History: Reports: Depression - Infectious Disease History Infectious Disease History: Reports: Novel Coronavirus - Past Surgical History HEENT Surgical History: Reports: Oral Surgery GI Surgical History: Reports: Cholecystectomy Female Surgical History: Reports: Hysterectomy Musculoskeletal Surgical History: Reports: Shoulder Surgery Social & Family History - Tobacco Use Tobacco Use Status *Q: Never Tobacco User - Caffeine Use Caffeine Use: Reports: Coffee - Living Situation & Occupation Living situation: Reports: 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 Denies: Fever, Chills, Malaise, Weakness, Diaphoresis HEENT: Reports: No Symptoms Respiratory: Reports: Shortness of Breath. Denies: Wheezing, Pleuritic Chest Pain, Cough, Sputum Cardiovascular: Reports: Chest Pain (Chest pressure), Dyspnea on Exertion. Denies: Lightheadedness, Palpitations, Syncope Endocrine: Reports: No Symptoms GI/Abdominal: Reports: No Symptoms : Reports: No Symptoms Musculoskeletal: Reports: No Symptoms Skin: Reports: No Symptoms Neurological: Reports: No Symptoms Psychiatric: Reports: No Symptoms Hematologic/Lymphatic: Reports: No Symptoms Immunologic: Reports: No Symptoms ED EXAM, GENERAL - Physical Exam Exam: See Below Exam Limited By: No Limitations General Appearance: Alert, WD/WN, Mild Distress (Dyspnea at rest) Ears: Normal External Exam, Hearing Grossly Normal Nose: Normal Inspection Throat/Mouth: Normal Inspection, Normal Lips, Normal Voice, No Airway Compromise Head: Atraumatic, Normocephalic Neck: Normal Inspection, Supple, Non-Tender, Full Range of Motion Respiratory/Chest: Lungs Clear, Normal Breath Sounds, Respiratory Distress (Mild at rest). No: Chest Non-Tender (Tender with palpation) Cardiovascular: Normal Peripheral Pulses, Regular Rate, Rhythm, No Edema, No Murmur Peripheral Pulses: 2+: Radial (L), Radial (R) GI/Abdominal: Normal Bowel Sounds, Soft, Non-Tender, No Distention (Female) Exam: Deferred Rectal (Female) Exam: Deferred Back Exam: Normal Inspection, Full Range of Motion Extremities: Normal Inspection, Normal Range of Motion, Non-Tender, No Pedal Edema, Normal Capillary Refill Neurological: Alert, Oriented, Normal Cognition Psychiatric: Normal Affect, Normal Mood Skin Exam: Warm, Dry, Intact, Normal Color, No Rash Lymphatic: No Adenopathy #1 Interpretation EKG Date: 01/22/21 Time: 17:27 Rhythm: NSR Rate (Beats/Min): 85 Petroleum: Normal P-Wave: Present QRS: Normal ST-T: Normal QT: Normal EKG Interpretation Comments: Per Dr. Durham interpretation: Sinus rhythm @ 85 Course - Vital Signs Text/Narrative:: 55 -year-old female with progressively worsening shortness of breath and chest pressure over the past couple of days.of note she does have a history of Covid that was diagnosed 10/17/20. Denies any significant medical history prior to that other than high cholesterol. She is a non-smoker. She has been on albuterol and budesonide puffers however she states that these are no longer working for her. I have ordered a CT angio of the chest as the patient is post Covid and there is a high probability that she could have a PE with her significant family history of factor V. I have also ordered labs and an EKG. Last Recorded V/S: Last Vital Signs Temp 96.9 F 01/22/21 17:27 Pulse 89 01/22/21 17:27 Resp 18 01/22/21 17:27 BP 137/100 H 01/22/21 17:27 Pulse Ox 98 01/22/21 17:27 - Orders/Labs/Meds Orders: Active Orders 24 hr Category Date Time Status EKG Documentation Completion [RC] STAT Care 01/22/21 17:59 Active Sodium Chloride 0.9% [Normal Saline] 100 ml Med 01/22/21 18:30 Active IV ASDIRECTED Sodium Chloride 0.9% [Saline Flush] Med 01/22/21 17:59 Active 10 ml FLUSH ASDIRECTED PRN Sodium Chloride 0.9% [Saline Flush] Med 01/22/21 18:30 Active 10 ml FLUSH BOLUS Saline Lock Insert [OM.PC] Stat Oth 01/22/21 17:59 Ordered Medication Orders Sodium Chloride (Normal Saline) 100 mls @ 60 mls/min IV ASDIRECTED AJAY Last Admin: 01/22/21 18:52 Dose: 60 mls/min Documented by: JUANJOSE Sodium Chloride (Sodium Chloride 0.9% 10 Ml Syringe) 10 ml FLUSH ASDIRECTED PRN PRN Reason: Keep Vein Open Last Admin: 01/22/21 18:13 Dose: 10 ml Documented by: JACKIE Sodium Chloride (Sodium Chloride 0.9% 10 Ml Syringe) 10 ml FLUSH BOLUS AJAY Last Admin: 01/22/21 18:52 Dose: 10 ml Documented by: JUANJOSE Labs: Laboratory Tests 01/22/21 01/22/21 Range/Units 17:26 17:26 WBC 7.28 (3.98-10.04) K/mm3 RBC 4.34 (3.98-5.22) M/mm3 Hgb 13.6 (11.2-15.7) gm/dl Hct 41.5 (34.1-44.9) % MCV 95.6 H (79.4-94.8) fl MCH 31.3 (25.6-32.2) pg MCHC 32.8 (32.2-35.5) g/dl RDW Std Deviation 41.4 (36.4-46.3) fL Plt Count 297 (182-369) K/mm3 MPV 9.9 (9.4-12.3) fl Neut % (Auto) 61.7 (34.0-71.1) % Lymph % (Auto) 27.5 (19.3-51.7) % Tyrrell % (Auto) 8.9 (4.7-12.5) % Eos % (Auto) 1.4 (0.7-5.8) Baso % (Auto) 0.4 (0.1-1.2) % Neut # (Auto) 4.49 (1.56-6.13) K/mm3 Lymph # (Auto) 2.00 (1.18-3.74) K/mm3 Tyrrell # (Auto) 0.65 H (0.24-0.36) K/mm3 Eos # (Auto) 0.10 (0.04-0.36) K/mm3 Baso # (Auto) 0.03 (0.01-0.08) K/mm3 Sodium 142 (136-145) mEq/L Potassium 3.9 (3.5-5.1) mEq/L Chloride 104 (98-107) mEq/L Carbon Dioxide 24 (21-32) mEq/L Anion Gap 17.9 H (5-15) BUN 16 (7-18) mg/dL Creatinine 1.0 (0.55-1.02) mg/dL Est Cr Clr Drug Dosing 47.40 mL/min Estimated GFR (MDRD) 57 (>60) mL/min BUN/Creatinine Ratio 16.0 (14-18) Glucose 116 H (74-106) mg/dL Calcium 9.6 (8.5-10.1) mg/dL Magnesium 1.7 L (1.8-2.4) mg/dl Total Bilirubin 0.2 (0.2-1.0) mg/dL AST 19 (15-37) U/L ALT 34 (14-59) U/L Alkaline Phosphatase 77 (46-116) U/L Troponin I < 0.017 (0.00-0.056) ng/mL C-Reactive Protein <0.2 (<1.0) mg/dL Total Protein 7.3 (6.4-8.2) g/dl Albumin 4.2 (3.4-5.0) g/dl Globulin 3.1 gm/dL Albumin/Globulin Ratio 1.4 (1-2) Meds: Medications Generic Name Dose Route Start Last Admin Trade Name Freq PRN Reason Stop Dose Admin Sodium Chloride 100 mls @ 60 mls/min 01/22/21 18:30 01/22/21 18:52 Normal Saline IV 60 mls/min ASDIRECTED AJAY Administration Sodium Chloride 10 ml 01/22/21 17:59 01/22/21 18:13 Sodium Chloride 0.9% 10 Ml Syringe FLUSH 10 ml ASDIRECTED PRN Administration Keep Vein Open Sodium Chloride 10 ml 03/29/21 18:30 01/22/21 18:52 Sodium Chloride 0.9% 10 Ml Syringe FLUSH 10 ml BOLUS AJAY Administration Discontinued Medications Generic Name Dose Route Start Last Admin Trade Name Mariia PRN Reason Stop Dose Admin Iopamidol 100 ml 01/22/21 18:19 01/22/21 18:52 Iopamidol 755 Mg/Ml 100 Ml Bottle IVPUSH 01/22/21 18:20 100 ml ONETIME ONE Administration - Re-Assessments/Exams Free Text/Narrative Re-Assessment/Exam: 01/22/21 19:14 Hematology is unremarkable, chemistry reveals a sodium of 142, potassium 3.9, anion gap 17.9, BUN 16, creatinine 1.0, glucose 116, magnesium 1.7, troponin less than 0.017, C-reactive protein less than 0.2. 01/22/21 19:[address] of the chest: 1. No findings of pulmonary embolism. 2. Nothing acute is appreciated on CT study of the chest. No appreciable changes seen from previous chest CT. 01/22/21 19:28 I have ordered for the patient received a dose of Solu-Medrol IV and then she will be discharged home with a prescription for prednisone. She is to continue using her albuterol nebulizers and she will need to follow-up with her primary care provider, Avelina Eckert in the clinic early next week. The patient is agreeable to this plan. Departure - Departure Time of Disposition: 19:29 Disposition: Home, Self-Care 01 Condition: Good Clinical Impression: [id number] condition Referrals: Cornelia Young PA-C [Primary Care Provider] - Forms: ED Department Discharge Additional Instructions: You were seen in the emergency department today with complaints of increased shortness of breath and chest pressure. EKG and full cardiac work-up was unremarkable. You do not have any signs of infection. CT scan of the chest was negative for a pulmonary embolism as well as pneumonia. You received a dose of IV steroids while in the emergency department. I also have given you a prescription for prednisone 20 mg twice daily for 5 days and then 20 mg daily for another 5 days. Also recommend that you take ibuprofen 600 mg every 6 hours or Aleve 2 tabs every 12 hours for the next 48 hours. Be sure you are taking your said daily as the combination of steroids and anti-inflammatories can make you prone to stomach ulcers. Keep in mind that prednisone can make you feel more wound up and can also increase your appetite. You will need to follow-up with Avelina Eckert in the clinic early next week. Should your condition worsen or change do not hesitate returning to the emergency department. Sepsis Event Note (ED) - Evaluation Sepsis Screening Result: No Definite Risk - Focused Exam Vital Signs: Vital Signs Temp Pulse Resp BP Pulse Ox 01/22/21 17:27 96.9 F 89 18 137/100 H 98 - My Orders Last 24 Hours: My Active Orders 01/22/21 17:59 EKG Documentation Completion [RC] STAT Sodium Chloride 0.9% [Saline Flush] 10 ml FLUSH ASDIRECTED PRN Saline Lock Insert [OM.PC] Stat 01/22/21 18:30 Sodium Chloride 0.9% [Normal Saline] 100 ml IV ASDIRECTED Sodium Chloride 0.9% [Saline Flush] 10 ml FLUSH BOLUS - Assessment/Plan Last 24 Hours: My Active Orders 01/22/21 17:59 EKG Documentation Completion [RC] STAT Sodium Chloride 0.9% [Saline Flush] 10 ml FLUSH ASDIRECTED PRN Saline Lock Insert [OM.PC] Stat 01/22/21 18:30 Sodium Chloride 0.9% [Normal Saline] 100 ml IV ASDIRECTED Sodium Chloride 0.9% [Saline Flush] 10 ml FLUSH BOLUS
[2021-01-22] MEDS ORDERED: Iopamidol 755 Mg/ML 100 ML Bottle IVPUSH ONE (18:19)
[2021-01-22] MEDS ORDERED: Sodium Chloride 0.9% 100 ML IV SCH (18:30)
[2021-01-22] MEDS ORDERED: Sodium Chloride 0.9% 10 ML Syringe FLUSH SCH (18:30)
--- NOTE | 2021-01-22 19:13 | CT ---
CT chest Technique: Multiple axial sections through the chest were obtained. Intravenous contrast was utilized. Study has been performed as a pulmonary angiogram protocol. Comparison: Prior chest CT study of 11/14/20. Findings: Pulmonary arteries are well opacified. No filling defects are seen to indicate pulmonary embolism. Thoracic aorta shows slight atherosclerotic calcification without aneurysm. Mediastinum and hilar regions show no adenopathy. No axillary adenopathy is seen. Visualized upper abdominal structures show surgical clips compatible with prior cholecystectomy. Nothing acute is seen within the visualized upper abdomen. Lung window settings were reviewed. No acute parenchymal process is seen. No pleural effusions are seen. No pneumothorax is identified. Bone window settings were reviewed which appear within normal limits for the patient's age. Impression: 1. No findings of pulmonary embolism. 2. Nothing acute is appreciated on CT study of the chest. No appreciable change is seen from previous chest CT. Diagnostic code #1
[2021-01-22] MEDS ORDERED: methylPREDNISolone Sodium Succinate 125 MG/2 ML SDV IVPUSH ONE (19:28)
[2021-01-22 20:03] VITALS: PULSE 71
== END 2021-01-22 19:50 | disposition home or self-care (01) ==
LOC: JD.ED 17:20
DX: R07.89 Other chest pain (principal); R06.02 Shortness of breath; E78.00 Pure hypercholesterolemia, unspecified; K21.9 Gastro-esophageal reflux disease without esophagitis; Z86.16 Personal history of COVID-19; Z88.5 Allergy status to narcotic agent; Z79.899 Other long term (current) drug therapy
CPT/HCPCS: 36415; 71275; 80053; 83735; 84484; 85025; 86140; 93005; 96374; 99285; J2930; Q9967; 93010; 99284

== ENCOUNTER 2021-09-27 07:22 | Day surgery (SDC) | payer BC ==
[~2021-09-27 07:22] MED LIST: Lactated Ringers 1,000 ML IV SCH; Lidocaine 1%/Sod Bicarbonate in NS 8.4% 1 ML Syringe IDERM PRN; Sodium Chloride 0.9% 10 ML Syringe FLUSH PRN
--- NOTE | 2021-09-27 07:36 | PCM.PREANE ---
Preanesthetic Assessment - Procedure Proposed Procedure: Diagnostic EGD - Anesthesia/Transfusion/Family Hx Anesthesia History: Prior Anesthesia Without Reaction Family History of Anesthesia Reaction: No Transfusion History: No Prior Transfusion(s) Intubation History: Unknown - Review of Systems General: No Symptoms Pulmonary: No Symptoms (September 2020 Covid +: pneumonia/ April 2021 Covid+(delta variant)/ETOH:occasionally) Cardiovascular: No Symptoms (HTN, Elevated Cholesterol, history of elevated HR), Dyspnea on Exertion, Orthopnea, Other (Epigastric pain on occasion) Gastrointestinal: No Symptoms (Hiatal Hernia/GERD), Abdominal Pain (epigastric pain), Difficulty Swallowing (occasionally), Flatus Neurological: No Symptoms (memory issues, lumbar disk herniation), Tingling (right sided sciatica) Other: Reports: Thyroid Problems (enlarged thyroid), Sinus Problem (Allergic rhinits), Depression, Anxiety - Physical Assessment NPO Status Date: 09/26/21 NPO Status Time: 21:00 Vital Signs: HR: 85 Sat: 99% B/P: 108/71 Resp: 16 Temp: 98.1 Height: 1.57 m Weight: 63.503 kg ASA Class: 3 Mental Status: Alert & Oriented x3 Airway Class: Mallampati = 2 Dentition: Reports: Normal Dentition, Caries Thyro-Mental Finger Breadths: 3 Mouth Opening Finger Breadths: 3 ROM/Head Extension: Full (5) Lungs: Clear to Auscultation, Normal Respiratory Effort Cardiovascular: Regular Rate, Regular Rhythm, No Murmurs - Lab Values: All labs reviewed and noted and within acceptable ranges to proceed with scheduled procedure. - Imaging/EKG Impressions: EKG: SR rate= 66 Echocardiogram: 11/06/2020; EF= 60-65% CXR: negative PFT's: unremarkable - Allergies Allergies/Adverse Reactions: Allergies Allergy/AdvReac Type Severity Reaction Status Date / Time hydrocodone Allergy Itching Verified 09/26/21 14:24 - Anesthesia Plan Pre-Op Medication Ordered: Beta Komal Beta Komal: Metoprolol Med Last Dose Date: 09/26/21 Med Last Dose Time: 07:00 - Acknowledgements Anesthesia Type Planned: MAC Pt an Appropriate Candidate for the Planned Anesthesia: Yes Alternatives and Risks of Anesthesia Discussed w Pt/Guardian: Yes Pt/Guardian Understands and Agrees with Anesthesia Plan: Yes PreAnesthesia Questionnaire HEENT History: Reports: Allergic Rhinitis, Impaired Vision, Other (See Below) Other HEENT History: pharyngitis, rhytides, thrush Cardiovascular History: Reports: High Cholesterol, Other (See Below) Other Cardiovascular History: chest pain, tachycardia Respiratory History: Reports: Other (See Below) Other Respiratory History: acute brochitis, wheezing, shortness of breath, pneumonia Gastrointestinal History: Reports: GERD, Hiatal Hernia, Other (See Below) Other Gastrointestinal History: epigastric pain, RUQ pain, rectal prolapse Genitourinary History: Reports: Other (See Below) Other Genitourinary History: dysuria, frequency, bladder prolapse TICKET ATTENDANT History: Reports: None Musculoskeletal History: Reports: Other (See Below) Other Musculoskeletal History: elbow pain, muscle spasm, right low back pain, right shoulder injury, right sciatica Neurological History: Reports: Other (See Below) Other Neuro History: forgetfullnexx, lumbar disc herniation Psychiatric History: Reports: Anxiety, Depression, Other (See Below) Other Psychiatric History: insomnia Endocrine/Metabolic History: Reports: Other (See Below) Other Endocrine/Metabolic History: enlarged thyroid Hematologic History: Reports: None Immunologic History: Reports: None Oncologic (Cancer) History: Reports: None Dermatologic History: Reports: Other (See Below) Other Dermatologic History: hair loss - Infectious Disease History Infectious Disease History: Reports: Novel Coronavirus - Past Surgical History Head Surgeries/Procedures: Reports: None HEENT Surgical History: Reports: Naso-Sinus Surgery, Oral Surgery Cardiovascular Surgical History: Reports: None Respiratory Surgical History: Reports: None GI Surgical History: Reports: Cholecystectomy Female Surgical History: Reports: Hysterectomy Male Surgical History: Reports: None Endocrine Surgical History: Reports: None Neurological Surgical History: Reports: None Musculoskeletal Surgical History: Reports: Shoulder Surgery - SUBSTANCE USE Tobacco Use Status *Q: Never Tobacco User Recreational Drug Use History: No - HOME MEDS Home Medications: Home Meds LORazepam 1 mg PO DAILY PRN 03/18/16 [History] Spironolactone [Aldactone] 100 mg PO DAILY 03/18/16 [History] Metoprolol Succinate 25 mg PO DAILY 10/17/20 [History] Pravastatin [Pravachol] 40 mg PO DAILY 10/17/20 [History] buPROPion HCL [Wellbutrin Xl] 300 mg PO DAILY 10/17/20 [History] Budesonide [Pulmicort] 1 dose INH BID 01/22/21 [History] Escitalopram [Lexapro] 10 mg PO DAILY 01/22/21 [History] Fluticasone/Vilanterol [Breo Ellipta 100-25 MCG Inhalation Kit] 1 puff PO DAILY 01/22/21 [History] Albuterol Sulfate [Albuterol Sulfate Hfa] 1 - 2 puff INH Q6H PRN 09/26/21 [History] Cyclobenzaprine [Flexeril] 10 mg PO TID PRN 09/26/21 [History] Dexlansoprazole [Dexilant] 30 mg PO DAILY 09/26/21 [History] Pantoprazole Sodium [Protonix] 40 mg PO DAILY 09/26/21 [History] buPROPion [Wellbutrin SR] 150 mg PO DAILY 09/26/21 [History] busPIRone [Buspar] 10 mg PO BID 09/26/21 [History] - CURRENT (IN HOUSE) MEDS Current Meds: Current Medications Lactated Ringer's (Ringers, Lactated) 1,000 mls @ 125 mls/hr IV ASDIRECTED AJAY Stop: 09/27/21 23:00 Lidocaine/Sodium Bicarbonate (Lidocaine 1%/Sod Bicarbonate In Ns 8.4% 1 Ml Syringe) 0.25 ml IDERM ONETIME PRN PRN Reason: Prior to IV Start Stop: 09/27/21 23:00 Sodium Chloride (Sodium Chloride 0.9% 10 Ml Syringe) 10 ml FLUSH ASDIRECTED PRN PRN Reason: Keep Vein Open Stop: 09/27/21 23:00
[2021-09-27] MEDS ORDERED: Propofol 200 MG/20 ML SDV ONE (08:05)
[2021-09-27] MEDS ORDERED: fentaNYL 100 MCG/2 ML SDV ONE (08:06)
--- NOTE | 2021-09-27 09:55 | PCM48HPAN ---
Post Anesthesia Note - EVALUATION WITHIN 48HRS OF ANESTHETIC Vital Signs in Normal Range: Yes Patient Participated in Evaluation: Yes Respiratory Function Stable: Yes Airway Patent: Yes Cardiovascular Function Stable: Yes Hydration Status Stable: Yes Pain Control Satisfactory: Yes Nausea and Vomiting Control Satisfactory: Yes Mental Status Recovered: Yes Vital Signs: Last Vital Signs Temp 37.1 C 09/27/21 07:40 Pulse 85 09/27/21 07:40 Resp 16 09/27/21 07:40 BP 111/75 09/27/21 07:40 Pulse Ox 99 09/27/21 07:40
--- NOTE | 2021-09-27 09:58 | PCM.PRNOTE ---
- Free Text/Narrative Note: Date: 09/27/2021 Procedure: diagnostic esophagogastroduodenoscopy Indication: medically refractory reflux symptoms, reported history of sliding hiatal hernia Endoscopist: Brijesh Obregon MD Findings: mild streaking erythema of the antral mucosa, few scattered small fundic gland polyps, no hiatal hernia, no gross evidence of Hylton esophagus or esophagitis. Detailed Report: The patient was taken to the endoscopy suite and placed in left lateral decubitus position. Timeout was performed and monitored anesthesia care was initiated. A bite-block was placed and the endoscope was inserted into the mouth. The scope was advanced to the distal duodenum with ease. The duodenal mucosa appeared grossly normal and there was boyer yellow bile within the duodenum. Biopsies were taken from the duodenal bulb with cold forceps. The scope was then withdrawn into the stomach. There appeared to be streaking eryth elias of the distal stomach. The pylorus otherwise appeared normal. There is no evidence of gastric ulceration. Mucosal biopsies were taken from the antrum. Proximally, a few small polyps that appeared consistent with fundic gland polyps were identified and the largest of which was biopsied with cold forceps. On retroflexion, no hiatal hernia was observed after watching and waiting for a full minute. The scope was then withdrawn into the distal esophagus and the gastroesophageal junction was well visualized. No abnormalities were noted. Multiple biopsies were taken with cold forceps at the GE junction, as well as slightly more proximally at the distal esophageal mucosa. The remainder of the esophagus appeared grossly normal. Air was suctioned from the stomach prior to withdrawal of the scope. The larynx was visualized and appeared normal. The patient tolerated the procedure well.
[2021-09-27 10:45] VITALS: BP 111/70; PULSE 68
== END 2021-09-27 10:32 | disposition home or self-care (01) ==
LOC: JD.SDS 07:22
PROVIDERS: ATTEND Surgery
DX: K31.89 Other diseases of stomach and duodenum (principal); K21.00 Gastro-esophageal reflux disease with esophagitis, without bleeding; K44.9 Diaphragmatic hernia without obstruction or gangrene; F41.9 Anxiety disorder, unspecified; E78.2 Mixed hyperlipidemia; G47.00 Insomnia, unspecified; M62.838 Other muscle spasm; K31.7 Polyp of stomach and duodenum; J30.9 Allergic rhinitis, unspecified; I10 Essential (primary) hypertension; Z88.5 Allergy status to narcotic agent; Z79.899 Other long term (current) drug therapy; Z98.890 Other specified postprocedural states
CPT/HCPCS: 43239; J2704; J3010; J7120; 00731

== ENCOUNTER 2021-11-06 07:44 | Observation (INO) | payer BC ==
[~2021-11-06 07:44] MED LIST changes: +Albuterol 0.083% 2.5 MG/3 ML Neb Soln NEB PRN; -Sodium Chloride 0.9% 10 ML Syringe FLUSH PRN; +Sodium Chloride 0.9% 10 ML Syringe FLUSH SCH
[2021-11-06] MEDS ORDERED: Midazolam 1 MG/ML 2 ML SDV ONE (08:02)
[2021-11-06] MEDS ORDERED: Rocuronium 50 MG/5 ML Vial ONE ×2 (08:02→11:53)
[2021-11-06] MEDS ORDERED: Dexamethasone 4 MG/ML 5 ML MDV ONE (08:02)
[2021-11-06] MEDS ORDERED: Lactated Ringers 1,000 ML ONE (08:02)
[2021-11-06] MEDS ORDERED: Ketorolac 30 MG/ML SDV ONE (08:02)
[2021-11-06] MEDS ORDERED: Ondansetron 4 MG/2 ML SDV ONE (08:02)
[2021-11-06] MEDS ORDERED: Propofol 200 MG/20 ML SDV ONE ×2 (08:03→11:44)
[2021-11-06] MEDS ORDERED: fentaNYL 250 MCG/5 ML SDV ONE (08:03)
[2021-11-06] MEDS ORDERED: Lidocaine 1% 4 ML ONE (08:03)
--- NOTE | 2021-11-06 10:09 | PCM.PREANE ---
Preanesthetic Assessment - Anesthesia/Transfusion/Family Hx Anesthesia History: Prior Anesthesia Without Reaction Family History of Anesthesia Reaction: No Transfusion History: No Prior Transfusion(s) Intubation History: Unknown - Review of Systems Pulmonary: Other (COPD, stable according to PFTs,) Cardiovascular: Other (HTN) Gastrointestinal: Other (GERD, on meds, hiatial hernia) Neurological: Other (memory issues) Other: Reports: Thyroid Problems (enlarged thyroid, monitoring), Depression, Anxiety - Physical Assessment NPO Status Date: 11/05/21 NPO Status Time: 21:00 Vital Signs: Last Vital Signs Temp 36.5 C 11/06/21 08:56 Pulse 72 11/06/21 08:56 Resp 16 11/06/21 08:56 BP 121/72 11/06/21 08:56 Pulse Ox 95 11/06/21 08:56 Height: 1.57 m Weight: 65.4 kg ASA Class: 2 Mental Status: Alert & Oriented x3 Airway Class: Mallampati = 2 Dentition: Reports: Normal Dentition Thyro-Mental Finger Breadths: 3 Mouth Opening Finger Breadths: 3 ROM/Head Extension: Full Lungs: Clear to Auscultation, Normal Respiratory Effort Cardiovascular: Regular Rate, Regular Rhythm - Imaging/EKG Impressions: EKG 11/17/20 Ef 60-65% SR at 85 - Allergies Allergies/Adverse Reactions: Allergies Allergy/AdvReac Type Severity Reaction Status Date / Time hydrocodone Allergy Itching Verified 11/06/21 09:36 - Blood Blood Available: No Product(s) Available: None - Anesthesia Plan Pre-Op Medication Ordered: None Beta Komal: Metoprolol Med Last Dose Date: 11/06/21 Med Last Dose Time: 07:00 - Acknowledgements Anesthesia Type Planned: General Anesthesia Pt an Appropriate Candidate for the Planned Anesthesia: Yes Alternatives and Risks of Anesthesia Discussed w Pt/Guardian: Yes Pt/Guardian Understands and Agrees with Anesthesia Plan: Yes PreAnesthesia Questionnaire HEENT History: Reports: Allergic Rhinitis, Impaired Vision Other HEENT History: pharyngitis, rhytides, thrush Cardiovascular History: Reports: High Cholesterol, Other (See Below) Other Cardiovascular History: takes a medication to help her heart muscle relax Respiratory History: Reports: Other (See Below) Other Respiratory History: acute brochitis, wheezing, shortness of breath, pneumonia Gastrointestinal History: Reports: GERD, Hiatal Hernia Other Gastrointestinal History: epigastric pain, RUQ pain, rectal prolapse Genitourinary History: Reports: Other (See Below) Other Genitourinary History: dysuria, frequency, bladder prolapse [employer]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 Musculoskeletal History: Reports: Other (See Below) Other Musculoskeletal History: elbow pain, muscle spasm, right low back pain, right shoulder injury, right sciatica Neurological History: Reports: Other (See Below) Other Neuro History: forgetfullnexx, lumbar disc herniation Psychiatric History: Reports: Depression Other Psychiatric History: insomnia Endocrine/Metabolic History: Reports: Other (See Below) Other Endocrine/Metabolic History: enlarged thyroid Hematologic History: Reports: None Immunologic History: Reports: None Oncologic (Cancer) History: Reports: None Dermatologic History: Reports: Other (See Below) Other Dermatologic History: hair loss - Infectious Disease History Infectious Disease History: Reports: Novel Coronavirus - Past Surgical History Head Surgeries/Procedures: Reports: None HEENT Surgical History: Reports: Naso-Sinus Surgery, Oral Surgery Cardiovascular Surgical History: Reports: None Respiratory Surgical History: Reports: None GI Surgical History: Reports: Cholecystectomy, EGD Female Surgical History: Reports: Hysterectomy Male Surgical History: Reports: None Endocrine Surgical History: Reports: None Neurological Surgical History: Reports: None Musculoskeletal Surgical History: Reports: Shoulder Surgery Oncologic Surgical History: Reports: Bone Marrow Transplant - SUBSTANCE USE Tobacco Use Status *Q: Never Tobacco User Recreational Drug Use History: No - HOME MEDS Home Medications: Home Meds LORazepam 1 mg PO BEDTIME PRN 03/18/16 [History] Spironolactone [Aldactone] 100 mg PO DAILY 03/18/16 [History] Metoprolol Succinate 25 mg PO DAILY 10/17/20 [History] Pravastatin [Pravachol] 40 mg PO DAILY 10/17/20 [History] buPROPion HCL [Wellbutrin Xl] 300 mg PO DAILY 10/17/20 [History] Escitalopram [Lexapro] 10 mg PO DAILY 01/22/21 [History] Fluticasone/Vilanterol [Breo Ellipta 100-25 MCG Inhalation Kit] 1 puff PO DAILY 01/22/21 [History] Albuterol Sulfate [Albuterol Sulfate Hfa] 1 - 2 puff INH Q6H PRN 09/26/21 [History] Cyclobenzaprine [Flexeril] 10 mg PO TID PRN 09/26/21 [History] Pantoprazole Sodium [Protonix] 40 mg PO DAILY 09/26/21 [History] Ascorbic Acid [Vitamin C] 1,000 mg PO DAILY 11/05/21 [History] Cholecalciferol (Vitamin D3) [Vitamin D3] 1,000 unit PO DAILY 11/05/21 [History] Lactobacillus Combination No.4 [Probiotic] 1 cap PO DAILY 11/05/21 [History] Vitamin B Complex 1 cap PO DAILY 11/05/21 [History] Zinc 50 mg PO DAILY 11/05/21 [History] - CURRENT (IN HOUSE) MEDS Current Meds: Current Medications Albuterol (Albuterol 0.083% 2.5 Mg/3 Ml Neb Soln) 2.5 mg NEB ONETIME PRN PRN Reason: COPD Stop: 11/06/21 23:00 Lactated Ringer's (Ringers, Lactated) 1,000 mls @ 125 mls/hr IV ASDIRECTED [facility] Stop: 11/06/21 23:00 Last Admin: 11/06/21 09:50 Dose: 125 mls/hr Documented by: Lidocaine/Sodium Bicarbonate (Lidocaine 1%/Sod Bicarbonate In Ns 8.4% 1 Ml Syringe) 0.25 ml IDERM ONETIME PRN PRN Reason: Prior to IV Start Stop: 11/06/21 18:00 Sodium Chloride (Sodium Chloride 0.9% 10 Ml Syringe) 10 ml FLUSH ASDIRECTED [facility] Stop: 11/06/21 18:00 Discontinued Medications Dexamethasone (Dexamethasone 4 Mg/Ml 5 Ml Mdv) Confirm Administered Dose 20 mg .ROUTE .STK-MED ONE Stop: 11/06/21 08:03 Fentanyl (Fentanyl 250 Mcg/5 Ml Sdv) Confirm Administered Dose 250 mcg .ROUTE .ST[facility]-MED ONE Stop: 11/06/21 08:04 Lactated Ringer's (Ringers, Lactated) Confirm Administered Dose 1,000 mls @ as directed .ROUTE .STK-MED ONE Stop: 11/06/21 08:03 Lidocaine HCl (Xylocaine-Mpf 1%) Confirm Administered Dose 4 mls @ as directed .ROUTE .STK-MED ONE Stop: 11/06/21 08:04 Ketorolac Tromethamine (Ketorolac 30 Mg/Ml Sdv) Confirm Administered Dose 30 mg .ROUTE .[facility] ONE Stop: 11/06/21 08:03 Midazolam HCl (Midazolam 1 Mg/Ml 2 Ml Sdv) Confirm Administered Dose 2 mg .ROUTE .[employer] ONE Stop: 11/06/21 08:03 Ondansetron HCl (Ondansetron 4 Mg/2 Ml Sdv) Confirm Administered Dose 4 mg .ROUTE [facility] Stop: 11/06/21 08:03 Propofol (Propofol 200 Mg/20 Ml Sdv) Confirm Administered Dose 200 mg .ROUTE [facility] ONE Stop: 11/06/21 08:04 Rocuronium Lily (Rocuronium 50 Mg/5 Ml Vial) Confirm Administered Dose 50 mg .ROUTE [facility] Stop: 11/06/21 08:03
[2021-11-06] MEDS ORDERED: Bupivacaine 0.5% 30 ML SDV ONE ×2 (10:10)
[2021-11-06] MEDS ORDERED: ceFAZolin 1 GM Vial ONE (10:35)
[2021-11-06] MEDS ORDERED: Albuterol 0.083% 2.5 MG/3 ML Neb Soln NEB ONE (11:00)
[2021-11-06] MEDS ORDERED: Famotidine 20 MG/2 ML SDV IVPUSH ONE (11:00)
[2021-11-06] MEDS ORDERED: Dexmedetomidine 200 MCG/2 ML SDV ONE (11:21)
[2021-11-06] MEDS ORDERED: Ketamine 500 mg/10 ML MDV ONE (11:35)
[2021-11-06] MEDS ORDERED: Albuterol 6.7 GM Inhaler INH PRN (13:32)
[2021-11-06] MEDS ORDERED: Ondansetron 4 MG in Sodium Chloride 0.9% 50 ML IV PRN (13:34)
[2021-11-06] MEDS ORDERED: Promethazine 12.5 MG in Sodium Chloride 0.9% 50 ML IV PRN (13:35)
[2021-11-06] MEDS ORDERED: HYDROmorphone 0.5 MG/0.5 ML Syringe IVPUSH PRN (13:39)
[2021-11-06] MEDS ORDERED: fentaNYL 100 MCG/2 ML SDV IVPUSH PRN (13:39)
[2021-11-06] MEDS ORDERED: Ondansetron 4 MG/2 ML SDV IVPUSH PRN ×2 (13:39→13:52)
--- NOTE | 2021-11-06 13:39 | PCM.POSTAN ---
POST ANESTHESIA ASSESSMENT - MENTAL STATUS Mental Status: Alert, Oriented - VITAL SIGNS Vital Signs: Last Vital Signs Temp 36.5 C 11/06/21 08:56 Pulse 72 11/06/21 08:56 Resp 16 11/06/21 08:56 BP 121/72 11/06/21 08:56 Pulse Ox 95 11/06/21 08:56 - RESPIRATORY Respiratory Status: Respiratory Rate WNL, Airway Patent, O2 Saturation Stable, Supplemental Oxygen - CARDIOVASCULAR CV Status: Pulse Rate WNL, Blood Pressure Stable - GASTROINTESTINAL GI Status: No Symptoms - PAIN Pain Score: 0 - POST OP HYDRATION Hydration Status: Adequate & Stable
--- NOTE | 2021-11-06 13:47 | PCM.PRNOTE ---
- Free Text/Narrative Note: Date: 11/06/2021 Operation: laparoscopic hiatal hernia repair with partial fundoplication Indication: medically refractory reflux Surgeon: Brijesh Obregon MD Findings: ~ 3 x 3 x 3 cm hiatal hernia not appreciated on endoscopy or recent CT. Surgisis mesh placed to reinforce hiatal closure. Toupet fundoplication created. Detailed Report: The patient was taken to the operating room and placed on the table in supine position. Timeout was performed and general endotracheal anesthesia was initiated. A Atwood catheter was placed, and the patient was repositioned in low lithotomy. The abdomen was prepped and draped in usual sterile fashion. Veress needle was placed at the left upper quadrant to establish pneumoperitoneum. Once pressure reached 15 mmHg, air was aspirated with a needle and syringe just superior into the left of the umbilicus. A 12 mm bladed trocar was inserted at this site and a 10 mm 30 degree laparoscope was inserted into the abdomen. There was no apparent injury from Veress needle placement and the needle was withdrawn. Additional ports were placed, including a 5 mm port at the left lateral abdomen at the subcostal margin for the pastrycook's assistant, a 12 mm trocar at the left upper quadrant for the surgeons right hand, a 5 mm port at the right lateral abdomen for liver retractor and a 5 mm port at the right upper abdomen for the surgeons left hand. The liver retractor was set up to hold the left lobe of the liver anteriorly and expose the hiatus. Patient was positioned in reverse Trendelenburg. There was an apparent hiatal hernia that was not previously appreciated on other studies. Hook electrocautery was used to go through the phrenoesophageal ligament starting laterally. Skeletal muscle fibers of the crura were exposed, and this line of dissection was carried circumferentially working from lateral to anterior to medial. The hernia sac was very small and thin. The pars flaccida was divided using a [place] LigaSure. The right pillar of the ambrocio was from the adjacent esophagus using careful blunt dissection. Next, the omentum was taken off the greater curvature of the stomach starting at the midportion of the body. This line of dissection was carried superiorly to the angle of His. The lateral portion of the fundus was reflected anteriorly and medially off the retroperitoneum. Working from the medial aspect, a grasper was able to pass posterior to the distal esophagus. 1/4 inch Vangie drain was used to encircle the distal esophagus. This was secured with an Endoloop and used for retraction through the remainder of the case. The posterior attachments of the proximal stomach to the retroperitoneum were freed up providing a large window for later fundoplication. With the esophagus retracted inferiorly and anteriorly, dissection was carried up into the mediastinum. The esophagus was well mobilized circumferentially well up into the chest, with a few centimeters of intra-abdominal esophagus after completion of dissection. The hiatus was closed posteriorly with 2 interrupted 0 Ethibond sutures with pledgets. This allowed for appropriate closure without compression of the esophagus. Closure was reinforced with Surgicel mesh which was cut to size and secured in place with Tisseel. The fundus of the stomach was passed posteriorly around the base of the esophagus. A partial fundoplication was created. Shoeshine maneuver was performed in order to ensure adequate positioning and placement. The medial aspect of the fundoplication was secured to the medial distal esophagus with three 2-0 Ethibond sutures. The lateral part of the fundoplication was created to mirror the medial portion using 3 additional sutures. The fundoplication looked good, there was no significant hernia sac requiring removal. The larger port sites were closed with 0 Vicryl using a laparoscopic suture passer to close fascia under laparoscopic visualization. Smaller ports were removed and hemostasis appeared satisfactory. Pneumoperitoneum was released. All incisions were closed with at the level of skin with running subcuticular Vicryl suture and dressed with Dermabond. A total of 24 cc 0.5% Marcaine was used for local anesthetic throughout the case. The patient tolerated the operation well.
[2021-11-06] MEDS: Acetaminophen 325 MG Tab PO SCH ×2 (15:07→22:02)
[2021-11-06] MEDS: Heparin Sodium 5,000 Units/ML Vial SUBCUT SCH ×2 (15:09→22:00)
[2021-11-06] MEDS: Lactated Ringers 1,000 ML IV SCH ×2 (15:50→23:21)
[2021-11-06] MEDS: oxyCODONE 5 MG Tab PO PRN ×2 (17:03→21:17)
[2021-11-06] MEDS: Simethicone 80 MG Tab.Chew PO PRN ×2 (19:58→23:49)
[2021-11-06] MEDS ORDERED: LORazepam 1 MG Tab PO PRN (20:27)
[2021-11-07] MEDS: Morphine 2 MG/ML SYRINGE IVPUSH PRN ×3 (00:22→09:19)
[2021-11-07] MEDS: Simethicone 80 MG Tab.Chew PO PRN ×2 (04:24→13:20)
[2021-11-07] MEDS: Acetaminophen 325 MG Tab PO SCH ×2 (06:05→13:19)
[2021-11-07] MEDS: Heparin Sodium 5,000 Units/ML Vial SUBCUT SCH ×2 (06:06→13:26)
--- NOTE | 2021-11-07 08:32 | PCM48HPAN ---
Post Anesthesia Note - EVALUATION WITHIN 48HRS OF ANESTHETIC Vital Signs in Normal Range: Yes Patient Participated in Evaluation: Yes Respiratory Function Stable: Yes Airway Patent: Yes Cardiovascular Function Stable: Yes Hydration Status Stable: Yes Pain Control Satisfactory: Yes Nausea and Vomiting Control Satisfactory: Yes Mental Status Recovered: Yes Vital Signs: Last Vital Signs Temp 97.5 F 11/07/21 04:22 Pulse 76 11/07/21 04:22 Resp 16 11/07/21 04:22 BP 133/74 11/07/21 04:22 Pulse Ox 94 L 11/07/21 04:22 - COMMENTS/OBSERVATIONS Free Text/Narrative:: Sitting up in bed. Heating pad to abd. States still full of air. Not passing gas yet. Anesthesia was good per patient.
[2021-11-07] MEDS ORDERED: Pravastatin 20 MG Tab PO SCH (09:00)
[2021-11-07] MEDS ORDERED: Metoprolol Succinate 25 MG Tab.ER PO SCH (09:00)
[2021-11-07] MEDS ORDERED: Citalopram 20 MG Tab PO SCH (09:00)
[2021-11-07] MEDS ORDERED: buPROPion 150 MG Tab.ER PO SCH (09:00)
[2021-11-07] MEDS ORDERED: Docusate Sodium 100 MG Cap PO ONE (11:30)
[2021-11-07] MEDS ORDERED: Polyethylene Glycol 3350 Powder 17 GM Packet PO SCH (12:00)
[2021-11-07] MEDS ORDERED: Acetaminophen/Codeine 300-30 MG Tab PO PRN ×2 (13:04→13:06)
[2021-11-07 13:56] VITALS: BP 127/80; PULSE 92
--- NOTE | 2021-11-07 15:02 | PCM.DCSUM1 ---
Discharge Summary - Hospital Course Free Text/Narrative:: Mrs. Garcia presented for elective laparoscopic partial fundoplication for medically refractory GERD. The operation was completed without complication. Postoperatively, she was kept in the hospital overnight for pain control and observation. She tolerated clear liquids and pain was manageable. She required one bladder catheterization for urinary retention of about 600 cc, but was able to void completely and without issue after this. CBC and BMP on POD 1 were unremarkable. The patient was able to tolerate a full liquid diet and she was deemed fit for discharge to home the afternoon of post-op day 1. Diagnosis: Stroke: No - Discharge Data Discharge Date: 11/07/21 Discharge Disposition: Home, Self-Care 01 Condition: Good - Referral to Home Health Primary Care Physician: PCP None - Patient Summary/Data Operative Procedure(s) Performed: laparoscopic Toupet fundoplication - Patient Instructions Diet: Full Liquid Diet Activity: As Tolerated, No Lifting Over 10 Pounds Showering/Bathing: May Shower, No Tub Bathing/Swimming Wound/Incision Care: Keep Operative Site/Wound Site Clean and Dry Notify Provider of: Fever, Increased Pain, Swelling and Redness, Drainage, Nausea and/or Vomiting - Discharge Plan *PRESCRIPTION DRUG MONITORING PROGRAM REVIEWED*: Not Applicable *COPY OF PRESCRIPTION DRUG MONITORING REPORT IN PATIENT KINZA: Not Applicable Prescriptions/Med Rec: Acetaminophen with Codeine [Acetaminophen-Cod #3] 1 each PO Q4H PRN #20 tablet PRN Reason: Pain Ondansetron [Ondansetron ODT] 4 mg PO Q6H PRN #20 tab.rapdis PRN Reason: Nausea oxyCODONE 5 mg PO Q4H PRN #15 tab PRN Reason: Pain Home Medications: Home Meds LORazepam 1 mg PO BEDTIME PRN 03/18/16 [History] Spironolactone [Aldactone] 100 mg PO DAILY 03/18/16 [History] Metoprolol Succinate 25 mg PO DAILY 10/17/20 [History] Pravastatin [Pravachol] 40 mg PO DAILY 10/17/20 [History] buPROPion HCL [Wellbutrin Xl] 300 mg PO DAILY 10/17/20 [History] Escitalopram [Lexapro] 10 mg PO DAILY 01/22/21 [History] Fluticasone/Vilanterol [Breo Ellipta 100-25 MCG Inhalation Kit] 1 puff PO DAILY 01/22/21 [History] Albuterol Sulfate [Albuterol Sulfate Hfa] 1 - 2 puff INH Q6H PRN 09/26/21 [History] Cyclobenzaprine [Flexeril] 10 mg PO TID PRN 09/26/21 [History] Pantoprazole Sodium [Protonix] 40 mg PO DAILY 09/26/21 [History] Ascorbic Acid [Vitamin C] 1,000 mg PO DAILY 11/05/21 [History] Cholecalciferol (Vitamin D3) [Vitamin D3] 1,000 unit PO DAILY 11/05/21 [History] Lactobacillus Combination No.4 [Probiotic] 1 cap PO DAILY 11/05/21 [History] Vitamin B Complex 1 cap PO DAILY 11/05/21 [History] Zinc 50 mg PO DAILY 11/05/21 [History] Acetaminophen with Codeine [Acetaminophen-Cod #3] 1 each PO Q4H PRN #20 tablet 11/07/21 [Rx] Ondansetron [Ondansetron ODT] 4 mg PO Q6H PRN #20 tab.rapdis 11/07/21 [Rx] oxyCODONE 5 mg PO Q4H PRN #15 tab 11/07/21 [Rx] Oxygen Therapy Mode: Room Air Patient Handouts: Toupet Fundoplication, Care After, Toupet Fundoplication Referrals: Brijesh Obregon MD [Physician] - - Discharge Summary/Plan Comment DC Time >30 min.: Yes (45) Total # of Minutes for Discharge Time: 45 Discharge Summary/Plan Comment: follow up in clinic in two weeks. - Patient Data Vitals - Most Recent: Last Vital Signs Temp 36.7 C 11/07/21 13:18 Pulse 92 11/07/21 13:18 Resp 16 11/07/21 13:18 BP 127/80 11/07/21 13:18 Pulse Ox 94 L 11/07/21 13:18 Weight - Most Recent: 68.13 kg I&O - Last 24 hours: Intake & Output 11/06/21 11/07/21 11/07/21 22:59 06:59 14:59 Intake Total 240 1900 415 Output Total 367 943 6203 Balance -710 1600 -1210 Lab Results - Last 24 hrs: Laboratory Results - last 24 hr 11/07/21 11/07/21 Range/Units 05:30 05:30 WBC 10.83 H (3.98-10.04) K/mm3 RBC 3.81 L (3.98-5.22) M/mm3 Hgb 11.8 D (11.2-15.7) gm/dl Hct 36.2 (34.1-44.9) % MCV 95.0 H (79.4-94.8) fl MCH 31.0 (25.6-32.2) pg MCHC 32.6 (32.2-35.5) g/dl RDW Std Deviation 40.7 (36.4-46.3) fL Plt Count 295 (182-369) K/mm3 MPV 9.7 (9.4-12.3) fl Neut % (Auto) 85.5 H (34.0-71.1) % Lymph % (Auto) 8.3 L (19.3-51.7) % [place] % (Auto) 6.0 (4.7-12.5) % Eos % (Auto) 0 L (0.7-5.8) Baso % (Auto) 0.0 L (0.1-1.2) % Neut # (Auto) 9.26 H (1.56-6.13) K/mm3 Lymph # (Auto) 0.90 L (1.18-3.74) K/mm3 [place] # (Auto) 0.65 H (0.24-0.36) K/mm3 Eos # (Auto) 0.00 L (0.04-0.36) K/mm3 Baso # (Auto) 0.00 L (0.01-0.08) K/mm3 Sodium 138 (136-145) mEq/L Potassium 4.2 (3.5-5.1) mEq/L Chloride 102 (98-107) mEq/L Carbon Dioxide 27 (21-32) mEq/L Anion Gap 13.2 (5-15) BUN 10 (7-18) mg/dL Creatinine 0.7 (0.55-1.02) mg/dL Est Cr Clr Drug Dosing 70.13 mL/min Estimated GFR (MDRD) > 60 (>60) mL/min BUN/Creatinine Ratio 14.3 (14-18) Glucose 122 H (70-99) mg/dL Calcium 8.5 (8.5-10.1) mg/dL Med Orders - Current: Current Medications Acetaminophen (Acetaminophen 325 Mg Tab) 975 mg PO Q8H [facility] Last Admin: 11/07/21 13:19 Dose: 975 mg Documented by: Acetaminophen/Codeine Phosphate (Acetaminophen/Codeine 300-30 Mg Tab) 1 - 2 tab PO Q4H PRN PRN Reason: Pain Albuterol (Albuterol 6.7 Gm Inhaler) 0 gm INH Q6H PRN PRN Reason: Shortness of Breath Bupropion HCl (Bupropion 150 Mg Tab.Er) 300 mg PO DAILY [facility] Last Admin: 11/07/21 09:00 Dose: 300 mg Documented by: Citalopram Hydrobromide (Citalopram 20 Mg Tab) 20 mg PO DAILY [facility] Last Admin: 11/07/21 09:27 Dose: 20 mg Documented by: Heparin Sodium (Porcine) (Heparin Sodium 5,000 Units/Ml Vial) 5,000 units SUBCUT Q8H [facility] Last Admin: 11/07/21 13:26 Dose: 5,000 units Documented by: Promethazine HCl 12.5 mg/ (Sodium Chloride) 50.5 mls @ 100 mls/hr IV Q6H PRN PRN Reason: Nausea Lorazepam (Lorazepam 1 Mg Tab) 1 mg PO BEDTIME PRN PRN Reason: Sleep Last Admin: 11/06/21 22:02 Dose: 1 mg Documented by: Metoprolol Succinate (Metoprolol Succinate 25 Mg Tab.Er) 25 mg PO DAILY [facility] Last Admin: 11/07/21 09:26 Dose: 25 mg Documented by: Morphine Sulfate (Morphine 2 Mg/Ml Syringe) 1 mg IVPUSH Q4H PRN PRN Reason: Pain (severe 7-10) Last Admin: 11/07/21 09:19 Dose: 1 mg Documented by: Ondansetron HCl (Ondansetron 4 Mg/2 Ml Sdv) 4 mg IVPUSH Q6H PRN PRN Reason: NAUSEA Oxycodone HCl (Oxycodone 5 Mg Tab) 5 mg PO Q4H PRN PRN Reason: Pain (moderate 4-6) Last Admin: 11/06/21 21:17 Dose: 5 mg Documented by: Polyethylene Glycol (Polyethylene Glycol 3350 Powder 17 Gm Packet) 17 gm PO DAILY [facility] Last Admin: 11/07/21 12:27 Dose: 17 gm Documented by: Pravastatin Sodium (Pravastatin 20 Mg Tab) 40 mg PO DAILY [facility] Last Admin: 11/07/21 09:27 Dose: 40 mg Documented by: Simethicone (Simethicone 80 Mg Tab.Chew) 80 mg PO Q4H PRN PRN Reason: Gas Last Admin: 11/07/21 13:20 Dose: 80 mg Documented by: Discontinued Medications Acetaminophen/Codeine Phosphate (Acetaminophen/Codeine 300-30 Mg Tab) 1 tab PO Q4H PRN PRN Reason: Pain Albuterol (Albuterol 0.083% 2.5 Mg/3 Ml Neb Soln) 2.5 mg NEB ONETIME PRN PRN Reason: COPD Stop: 11/06/21 23:00 Albuterol (Albuterol 0.083% 2.5 Mg/3 Ml Neb Soln) 2.5 mg NEB ONETIME ONE Stop: 11/06/21 11:01 Last Admin: 11/06/21 10:37 Dose: 2.5 mg Documented by: Bupivacaine HCl (Bupivacaine 0.5% 30 Ml Sdv) Confirm Administered Dose 30 ml .ROUTE .STK-MED ONE Stop: 11/06/21 10:11 Bupivacaine HCl (Bupivacaine 0.5% 30 Ml Sdv) Confirm Administered Dose 30 ml .ROUTE .[facility]-MED ONE Stop: 11/06/21 10:11 Cefazolin Sodium (Cefazolin 1 Gm Vial) Confirm Administered Dose 2 gm .ROUTE .STK-MED ONE Stop: 11/06/21 10:36 Dexamethasone (Dexamethasone 4 Mg/Ml 5 Ml Mdv) Confirm Administered Dose 20 mg .ROUTE .STK-MED ONE Stop: 11/06/21 08:03 Dexmedetomidine HCl (Dexmedetomidine 200 Mcg/2 Ml Sdv) Confirm Administered Dose 200 mcg .ROUTE .STK-MED ONE Stop: 11/06/21 11:22 Docusate Sodium (Docusate Sodium 100 Mg Cap) 100 mg PO ONETIME ONE Stop: 11/07/21 11:31 Last Admin: 11/07/21 12:27 Dose: 100 mg Documented by: Famotidine (Famotidine 20 Mg/2 Ml Sdv) 20 mg IVPUSH ONETIME ONE Stop: 11/06/21 11:01 Last Admin: 11/06/21 10:36 Dose: 20 mg Documented by: Fentanyl (Fentanyl 250 Mcg/5 Ml Sdv) Confirm Administered Dose 250 mcg .ROUTE .STK-MED ONE Stop: 11/06/21 08:04 Fentanyl (Fentanyl 100 Mcg/2 Ml Sdv) 50 mcg IVPUSH Q5M PRN PRN Reason: Pain Stop: 11/06/21 18:00 Glycopyrrolate (Glycopyrrolate 0.2 Mg/Ml 2 Ml Syringe) Confirm Administered Dose 0.4 mg .ROUTE .STK-MED ONE Stop: 11/06/21 12:57 Glycopyrrolate (Glycopyrrolate 0.2 Mg/Ml 2 Ml Syringe) Confirm Administered Dose 0.4 mg .ROUTE .STK-MED ONE Stop: 11/06/21 13:06 Hydromorphone HCl (Hydromorphone 0.5 Mg/0.5 Ml Syringe) 0.5 mg IVPUSH Q10M PRN PRN Reason: Pain (severe 7-10) Stop: 11/06/21 18:00 Lactated Ringer's (Ringers, Lactated) 1,000 mls @ 125 mls/hr IV ASDIRECTED [facility] Stop: 11/06/21 23:00 Last Admin: 11/06/21 09:50 Dose: 125 mls/hr Documented by: Lactated Ringer's (Ringers, Lactated) Confirm Administered Dose 1,000 mls @ as directed .ROUTE .STK-MED ONE Stop: 11/06/21 08:03 Lidocaine HCl (Xylocaine-Mpf 1%) Confirm Administered Dose 4 mls @ as directed .ROUTE [facility] ONE Stop: 11/06/21 08:04 Lactated Ringer's (Ringers, Lactated) 1,000 mls @ 100 mls/hr IV ASDIRECTED [facility] Last Admin: 11/06/21 23:21 Dose: 100 mls/hr Documented by: Ondansetron HCl 4 mg/ Sodium (Chloride) 52 mls @ 100 mls/hr IV Q6H PRN PRN Reason: Nausea Ketamine HCl (Ketamine 500 Mg/10 Ml Mdv) Confirm Administered Dose 500 mg .ROUTE .STK-MED ONE Stop: 11/06/21 11:36 Ketorolac Tromethamine (Ketorolac 30 Mg/Ml Sdv) Confirm Administered Dose 30 mg .ROUTE .STK-MED ONE Stop: 11/06/21 08:03 Lidocaine/Sodium Bicarbonate (Lidocaine 1%/Sod Bicarbonate In Ns 8.4% 1 Ml Syringe) 0.25 ml IDERM ONETIME PRN PRN Reason: Prior to IV Start Stop: 11/06/21 18:00 Midazolam HCl (Midazolam 1 Mg/Ml 2 Ml Sdv) Confirm Administered Dose 2 mg .ROUTE .[facility] ONE Stop: 11/06/21 08:03 Miscellaneous Medication (Phenylephrine Hcl In 0.9% Nacl 1 Mg/10 Ml Syringe) Confirm Administered Dose 1 mg .ROUTE .[facility] ONE Stop: 11/06/21 11:54 Neostigmine Methylsulfate (Neostigmine Methylsulfate 5 Mg/5 Ml Syringe) Confirm Administered Dose 5 mg .ROUTE .[facility] ONE Stop: 11/06/21 12:57 Ondansetron HCl (Ondansetron 4 Mg/2 Ml Sdv) Confirm Administered Dose 4 mg .ROUTE .[facility] ONE Stop: 11/06/21 08:03 Ondansetron HCl (Ondansetron 4 Mg/2 Ml Sdv) 4 mg IVPUSH ONETIME PRN PRN Reason: Nausea/Vomiting Stop: 11/06/21 18:00 Propofol (Propofol 200 Mg/20 Ml Sdv) Confirm Administered Dose 200 mg .ROUTE .ST-MED ONE Stop: 11/06/21 08:04 Propofol (Propofol 200 Mg/20 Ml Sdv) Confirm Administered Dose 200 mg .ROUTE .[facility] ONE Stop: 11/06/21 11:45 Rocuronium [place] (Rocuronium 50 Mg/5 Ml Vial) Confirm Administered Dose 50 mg .ROUTE .ST-MED ONE Stop: 11/06/21 08:03 Rocuronium [place] (Rocuronium 50 Mg/5 Ml Vial) Confirm Administered Dose 50 mg .ROUTE .[facility] ONE Stop: 11/06/21 11:54 Sodium Chloride (Sodium Chloride 0.9% 10 Ml Syringe) 10 ml FLUSH ASDIRECTED [facility] Stop: 11/06/21 18:00
== END 2021-11-07 16:15 | disposition home or self-care (01) ==
LOC: JD.OB 07:44 → INTOOBSV 07:44
PROVIDERS: ADMIT Surgery; ATTEND Surgery
DX: K44.9 Diaphragmatic hernia without obstruction or gangrene (principal); K21.9 Gastro-esophageal reflux disease without esophagitis; F41.9 Anxiety disorder, unspecified; F32.A Depression, unspecified; E78.2 Mixed hyperlipidemia; J44.9 Chronic obstructive pulmonary disease, unspecified; I10 Essential (primary) hypertension; Z88.5 Allergy status to narcotic agent; Z79.899 Other long term (current) drug therapy; Z98.890 Other specified postprocedural states
CPT/HCPCS: 36415; 43282; 51701; 51798; 80048; 80053; 85025; 94760; A9270; C1781; G0378; J0690; J1100; J1644; J1885; J2250; J2270; J2370; J2405; J2704; J2710; J3010; J3490; J7120; 00790

== ENCOUNTER 2021-11-12 20:07 | Emergency (ER) | payer BC ==
[2021-11-12 20:46] VITALS: BP 129/97
[2021-11-13 02:06] VITALS: PULSE 78
== END 2021-11-13 01:45 | disposition home or self-care (01) ==
LOC: JD.ED 20:07
DX: R50.9 Fever, unspecified (principal); R13.10 Dysphagia, unspecified; E78.00 Pure hypercholesterolemia, unspecified; I10 Essential (primary) hypertension; Z86.16 Personal history of COVID-19; Z88.5 Allergy status to narcotic agent; Z79.899 Other long term (current) drug therapy
CPT/HCPCS: 36415; 71260; 71260-26; 74177; 74177-26; 80053; 81001; 83605; 83735; 85025; 99284-25

== ENCOUNTER 2024-02-24 10:27 | Emergency (ER) | payer BC ==
[2024-02-24 10:37] VITALS: BP 124/81; PULSE 86
== END 2024-02-24 12:16 | disposition home or self-care (01) ==
LOC: JD.ED 10:27
DX: T59.4X1A Toxic effect of chlorine gas, accidental (unintentional), initial encounter (principal); E78.00 Pure hypercholesterolemia, unspecified; K21.9 Gastro-esophageal reflux disease without esophagitis; Z86.16 Personal history of COVID-19; Z79.899 Other long term (current) drug therapy; Z88.5 Allergy status to narcotic agent
CPT/HCPCS: 71046; 71046-26; 99283; 99284

== ENCOUNTER 2025-09-27 08:37 | Emergency (ER) | payer BC ==
[2025-09-27] MEDS ORDERED: Sodium Chloride 0.9% 10 ML Syringe FLUSH PRN (09:36)
[2025-09-27 11:05] LABS: BASOPHILS ABSOLUTE AUTO 0.1 K/mm3 (0.0-0.2); BASOPHILS PERCENT AUTO 0.9 % (0.0-1.0); EOSINOPHILS ABSOLUTE AUTO 0.3 K/mm3 (0.0-0.4); EOSINOPHILS PERCENT AUTO 4.9 % (0.0-6.0); IMMATURE GRAN ABSOLUTE AUTO 0.01 K/mm3 (0.00-0.05); IMMATURE GRAN PERCENT AUTO 0.2 % (0.0-0.4); LYMPHOCYTES ABSOLUTE AUTO 2.1 K/mm3 (1.0-4.8); LYMPHOCYTES PERCENT AUTO 33.6 % (24.0-44.0); MEAN PLATELET VOLUME 9.1 fl (9.4-12.3); MONOCYTES ABSOLUTE AUTO 0.6 K/mm3 (0.0-0.8); MONOCYTES PERCENT AUTO 8.8 % (0.0-8.0); NEUTROPHILS ABSOLUTE AUTO 3.3 K/mm3 (1.8-7.7); NEUTROPHILS PERCENT AUTO 51.6 % (41.0-71.0); NRBC ABSOLUTE 0.00 (0.00-0.02); NRBC PERCENT 0.0 % (0.0-0.2); PLATELET COUNT,PLT 256 K/mm3 (150-400); RED BLOOD CELL COUNT 4.61 M/mm3 (4.10-5.30); WHITE BLOOD CELL COUNT,WBC 6.37 K/mm3 (3.9-11.3)
[2025-09-27 11:38] LABS: A/G RATIO 1.2 (1-2); ALANINE AMINOTRANSFERASE,ALT 132.0 U/L (14-59); ASPARTATE AMNIOTRANSFERASE,AST 74.0 U/L (15-37); BILIRUBIN TOTAL 0.5 mg/dL (0.2-1.0); BLOOD UREA NITROGEN,BUN 15.0 mg/dL (7-18); CARBON DIOXIDE,CO2 27.0 mEq/L (21-32); CHLORIDE,CL 103.0 mEq/L (98-107); CREATININE 0.7 mg/dL (0.55-1.02); EST CRCL DRUG DOSING (CG) 63.69 mL/min; ESTIMATED GFR 98.0 mL/min (>60); GLUCOSE RANDOM 88.0 mg/dL (70-99); POTASSIUM,K 4.8 mEq/L (3.5-5.1); PROTEIN TOTAL,TP 7.1 g/dl (6.4-8.2); SODIUM,NA 137.0 mEq/L (136-145); TSH 1.538 uIU/mL (0.358-3.74)
[2025-09-27 13:10] VITALS: BP 147/105; PULSE 76
== END 2025-09-27 13:05 | disposition home or self-care (01) ==
LOC: JD.ED 08:37
DX: G44.86 Cervicogenic headache (principal); E78.00 Pure hypercholesterolemia, unspecified; Z86.16 Personal history of COVID-19; Z90.49 Acquired absence of other specified parts of digestive tract; Z90.710 Acquired absence of both cervix and uterus; Z79.82 Long term (current) use of aspirin; Z79.899 Other long term (current) drug therapy; W00.9XXA Unspecified fall due to ice and snow, initial encounter
CPT/HCPCS: 36415; 80053; 83735; 84443; 85025; 99284